=== PATIENT | male | born 1975 | race Caucasian/White ===

== ENCOUNTER 2020-03-01 11:59 | Observation (INO) ==
--- OUTSIDE RECORDS SUMMARY | 2020-03-01 12:02 | External Medical Summary | Continuity of Care Document ---
:1975 Author Name Matt M.Li, Provider Address Unavailable Unavailable , Care Team Providers Name Role Phone Unavailable Unavailable Unavailable CINTIA CUEVAS Unavailable Unavailable Problems Vision loss, left eye (369.8) (H54.62) Obesity (278.00) (E66.9) Edema (782.3) (R60.9) Impaired fasting glucose (790.21) (R73.01) Hypertension (401.9) (I10) Asthma (493.90) (J45.909) Allergic rhinitis (477.9) (J30.9) Gout (274.9) (M10.9) GERD without esophagitis (530.81) (K21.9) Allergies and Adverse Reactions Codeine Sulfate TABS (Allergy) Penicillins (Allergy) predniSONE TABS (Allergy) Medications metFORMIN HCl - 1000 MG Oral Tablet , M.D. Refills: 0 Singulair 10 MG Oral Tablet , M.D. Refills: 0 Claritin 10 MG Oral Tablet , M.D. Refills: 0 Zocor 40 MG Oral Tablet , M.D. Refills: 0 Ibuprofen 600 MG Oral Tablet , M.D. Refills: 0 Omeprazole 40 MG Oral Capsule Delayed Release , M.D. Refills: 0 glipiZIDE 10 MG Oral Tablet , M.D. Refills: 0 Allopurinol 300 MG Oral Tablet , M.D. Refills: 0 Synthroid 125 MCG Oral Tablet , M.D. Refills: 0 raNITIdine HCl 300 MG CAPS , M.D. Refills: 0 Procedures Procedures not documented Immunizations Immunizations not documented Plan of Treatment Planned Observations Planned Goals not documented Results No Known Results Results not documented
--- OUTSIDE RECORDS SUMMARY | 2020-03-01 12:02 | External Medical Summary | Continuity of Care Document ---
:1975 Author Name Matt M.Li, Provider Address Unavailable Unavailable , Care Team Providers Name Role Phone Unavailable Unavailable Unavailable CINTIA CUEVAS Unavailable Unavailable Problems GERD without esophagitis (530.81) (K21.9) Gout (274.9) (M10.9) Allergic rhinitis (477.9) (J30.9) Asthma (493.90) (J45.909) Hypertension (401.9) (I10) Impaired fasting glucose (790.21) (R73.01) Edema (782.3) (R60.9) Obesity (278.00) (E66.9) Vision loss, left eye (369.8) (H54.62) Allergies and Adverse Reactions Codeine Sulfate TABS [...]
[2020-03-01] MEDS ORDERED: CLINDAMYCIN 600 MG in DEXTROSE 5% 50 ML IV ONE (12:29)
[2020-03-01] MEDS ORDERED: SODIUM CHLORIDE 0.9% 1000ML 1,000 ML IV ONE (12:40)
--- NOTE | 2020-03-01 12:40 | Emergency Department Note ---
History of Present Illness General Chief complaint: Facial Injury/Pain Stated complaint: LUMP ON FACE, FEVER Time Seen by Provider: 03/01/20 12:21 Source: patient History of Present Illness Provider complaint: Facial pain Onset (ago): day(s) Location: face and left Radiation: neck Severity: mild Pain Consistency: + constant Maximum Pain Intensity: 2 Quality: + aching Exacerbated By: + other (When he touches it or bends over) Associated symptoms: + cough (Mild cough starting today) and + fever/chills (Tactile fever and chills); no chest pain, no nausea/vomiting and no shortness of breath This is a 44-year-old male who presents with left facial pain and swelling. The patient states that he had a pimple yesterday and then when he woke up this morning he noticed that it was very swollen and tender. He describes the pain as an aching and soreness. It is worse when he touches it or bends over. The pain does radiate into his left neck. He has had some associated tactile fevers and chills. He also noticed this morning that he woke up with a nonproductive cough. He denies any known exposure to COVID-19 and states that he stays home all day. He denies any chest pain, shortness of breath, abdominal pain, or vomiting. He did state that he felt his heart racing earlier. Home Medications Home Medications Medication Instructions Recorded Confirmed Type furosemide 20 mg PO QAM 03/01/20 03/01/20 History glipizide 10 mg PO BID 03/01/20 03/01/20 History ibuprofen 800 mg PO TIDM 03/01/20 03/01/20 History levothyroxine 137 mcg PO QAM 03/01/20 03/01/20 History lisinopril 10 mg PO QAM 03/01/20 03/01/20 History metformin 1,000 mg PO BID 03/01/20 03/01/20 History montelukast 10 mg PO QAM 03/01/20 03/01/20 History omeprazole 40 mg PO QAM 03/01/20 03/01/20 History simvastatin 40 mg PO QAM 03/01/20 03/01/20 History Allergies Allergy/AdvReac Type Severity Reaction Status Date / Time methylprednisolone Allergy Unknown chest Verified 03/01/20 14:53 pain,blurred vision,depression Penicillins Allergy Unknown RASH Unverified 03/01/20 14:53 lorazepam AdvReac Severe welts in Unverified 03/01/20 14:53 mouth ~ throat swells Past Med/Surg History Medical History Hypothyroidism Social History Smoking Status: Never smoker Do You Dip or Chew Tobacco: No; Hx Alcohol Use: Yes (Quit drinking 20 years ago) Hx Substance Use: No Preferred Language: Turkish Communication Ability: Effective Study Lead Required: No Beliefs That Will Affect Care: None Current Living Situation: Alone Other Information That Helps Us Care for You: No Feels Safe at Home: Yes Safety Concerns: Feels Safe At This Time Assistive Devices: Glasses Review of Systems See HPI for pertinent positives & negatives. and A total of 10 systems reviewed and were otherwise negative Physical Exam Vital Signs Vital Signs - 24 hr 03/01/20 12:14 03/01/20 14:02 03/01/20 14:30 Temperature 37.0 C Temperature Source Oral Pulse Rate 107 H 98 H 90 Pulse Rate from SpO2 Sensor 98 H 90 Respiratory Rate 20 25 H 21 Blood Pressure 169/79 H 146/85 H 150/83 H Blood Pressure Mean 109 93 107 Pulse Oximetry 97 96 97 Oxygen Delivery Method Room Air Sepsis Recent Fever Within 48 Hours No Sepsis New/Unexplained Change in Mental Status N/A Sepsis Action Taken by Nursing No Action Required 03/01/20 15:00 03/01/20 15:31 03/01/20 16:00 Temperature Temperature Source Pulse Rate 88 93 H 85 Pulse Rate from SpO2 Sensor 88 95 H 85 Respiratory Rate 20 20 22 Blood Pressure 142/84 H 162/90 H 143/78 H Blood Pressure Mean 103 107 89 Pulse Oximetry 97 97 97 Oxygen Delivery Method Sepsis Recent Fever Within 48 Hours Sepsis New/Unexplained Change in Mental Status Sepsis Action Taken by Nursing 03/01/20 16:30 Temperature Temperature Source Pulse Rate 86 Pulse Rate from SpO2 Sensor 85 Respiratory Rate 23 Blood Pressure 136/81 Blood Pressure Mean 100 Pulse Oximetry 96 Oxygen Delivery Method Sepsis Recent Fever Within 48 Hours Sepsis New/Unexplained Change in Mental Status Sepsis Action Taken by Nursing Constitutional: Vital signs reviewed. Eyes: Pupils are equal round reactive to light. Conjunctiva are noninjected. ENT: Pharynx is clear without erythema or exudate. Mucous membranes are dry. Swelling to the left side of his face in the preauricular region with fl uctuance. There is erythema over the area extending to the right side of his face. He is tender in the left submandibular region. No submental tenderness or firmness or elevation of the tongue. Respiratory: Clear to auscultation bilaterally. Breath sounds are equal bilaterally. Cardiovascular: Tachycardic. Regular rhythm. GI: Soft, nondistended and nontender. Bowel sounds are present. Musculoskeletal: No peripheral edema. No lower extremity tenderness. Integumentary: No cyanosis. or jaundice. Neurological: The patient is awake and alert. No focal deficits. Psychiatric: Normal affect. Not anxious appearing. Course Administered Medications Discontinued Medications Clindamycin Phosphate 600 mg/ (Dextrose) 54 mls @ 100 mls/hr IV ONE ONE Stop: 03/01/20 13:01 Last Infusion: 03/01/20 14:37 Dose: 0 mls/hr Documented by: [id number] Admin: 03/01/20 14:02 Dose: 100 mls/hr Documented by: [id number] Sodium Chloride (Nss 1000ml) 1,000 mls @ 999 mls/hr IV .Q1H1M ONE Stop: 03/01/20 13:40 Last Infusion: 03/01/20 15:29 Dose: 0 mls/hr Documented by: [id number] Admin: 03/01/20 14:02 Dose: 999 mls/hr Documented by: [id number] Ampicillin Sodium/Sulbactam Sodium 3,000 mg/ Sodium Chloride 108 mls @ 200 mls/hr IV NOW STA; Protocol Stop: 03/01/20 17:19 Last Infusion: 03/01/20 17:58 Dose: 0 mls/hr Documented by: [id number] Admin: 03/01/20 17:22 Dose: 200 mls/hr Documented by: [id number] Ioversol (Ioversol 100ml) 94 ml IV ONCE ONE Stop: 03/01/20 15:28 Last Admin: 03/01/20 15:28 Dose: 94 ml Documented by: [id number] Medical Decision Making Differential Diagnosis Facial abscess, facial cellulitis, sialoadenitis, sialolithiasis, MRSA, COVID-19 Medical Records Attestation: I reviewed the patient's medical records. I did perform a limited focused review of portions of the patient's old chart on the electronic medical record. The patient has had no recent pertinent visits to this hospital. Home Medications Current Medication List: was personally reviewed by me Laboratory Data Attestation: I reviewed the patient's lab results. Result diagrams: 03/01/20 13:55 03/01/20 13:55 Lab Results 03/01/20 03/01/20 03/01/20 Range/Units 13:55 13:55 13:55 WBC 10.01 (4.8-10.8) K/uL RBC 4.92 (4.7-6.1) M/uL Hgb 12.6 L (14.0-18.0) g/dL Hct 40.5 L (42-52) % MCV 82.3 (80-100) fL MCH 25.6 (25-34) pg MCHC 31.1 L (32-36) g/dL RDW Std Deviation 42.7 (36.4-46.3) fL RDW Coeff of Lia 14.4 (11.5-14.5) % Plt Count 208 (130-400) K/uL MPV 10.2 (7.4-10.4) fL Immature Gran % (Auto) 0.5 % Neut % (Auto) 70.9 % Lymph % (Auto) 19.9 % [place] % (Auto) 7.2 % Eos % (Auto) 1.3 % Baso % (Auto) 0.2 % Neut # (Auto) 7.10 H (1.4-6.5) K/uL Lymph # (Auto) 1.99 (1.2-3.4) K/uL [place] # (Auto) 0.72 H (0.11-0.59) K/uL Eos # (Auto) 0.13 (0-0.5) K/uL Baso # (Auto) 0.02 (0-0.2) K/uL Immature Gran # (Auto) 0.05 H (0.00-0.02) K/uL PT 11.5 (9.0-12.0) Seconds INR 1.1 (0.9-1.1) APTT 29.1 (21.0-31.0) Seconds PTT Ratio 1.0 Sodium 135 L (136-145) mmol/L Potassium 3.7 (3.5-5.1) mmol/L Chloride 102 (98-107) mmol/L Carbon Dioxide 28 (21-32) mmol/L Anion Gap 5.0 (3-11) BUN 10 (7-18) mg/dl Creatinine 1.22 (0.6-1.4) mg/dl Est Cr Clr Drug Dosing 122.6 ml/min Est GFR ( Amer) 84.2 Est GFR (Non-Af Amer) 72.7 BUN/Creatinine Ratio 8.4 L (10-20) Glucose 223 H (70-99) mg/dl Calcium 9.0 (8.5-10.1) mg/dl Total Bilirubin 0.7 (0.2-1) mg/dl AST 33 (15-37) U/L ALT 64 (12-78) U/L Alkaline Phosphatase 109 (45-117) U/L Total Protein 8.6 H (6.4-8.2) gm/dl Albumin 3.6 (3.4-5.0) gm/dl Globulin 5.0 H (2.5-4.0) gm/dl Albumin/Globulin Ratio 0.7 L (0.9-2) Nasal Screen MRSA (PCR) (Negative) COVID-19 Eval Order SARS-CoV-2, RNA, NAAT (NEGATIVE) 03/01/20 03/01/20 03/01/20 Range/Units 14:00 14:00 14:00 WBC (4.8-10.8) K/uL RBC (4.7-6.1) M/uL Hgb (14.0-18.0) g/dL Hct (42-52) % MCV (80-100) fL MCH (25-34) pg MCHC (32-36) g/dL RDW Std Deviation (36.4-46.3) fL RDW Coeff of Lia (11.5-14.5) % Plt Count (130-400) K/uL MPV (7.4-10.4) fL Immature Gran % (Auto) % Neut % (Auto) % Lymph % (Auto) % [place] % (Auto) % Eos % (Auto) % Baso % (Auto) % Neut # (Auto) (1.4-6.5) K/uL Lymph # (Auto) (1.2-3.4) K/uL [place] # (Auto) (0.11-0.59) K/uL Eos # (Auto) (0-0.5) K/uL Baso # (Auto) (0-0.2) K/uL Immature Gran # (Auto) (0.00-0.02) K/uL PT (9.0-12.0) Seconds INR (0.9-1.1) APTT (21.0-31.0) Seconds PTT Ratio Sodium (136-145) mmol/L Potassium (3.5-5.1) mmol/L Chloride (98-107) mmol/L Carbon Dioxide (21-32) mmol/L Anion Gap (3-11) BUN (7-18) mg/dl Creatinine (0.6-1.4) mg/dl Est Cr Clr Drug Dosing ml/min Est GFR ( Amer) Est GFR (Non-Af Amer) BUN/Creatinine Ratio (10-20) Glucose (70-99) mg/dl Calcium (8.5-10.1) mg/dl Total Bilirubin (0.2-1) mg/dl AST (15-37) U/L ALT (12-78) U/L Alkaline Phosphatase (45-117) U/L Total Protein (6.4-8.2) gm/dl Albumin (3.4-5.0) gm/dl Globulin (2.5-4.0) gm/dl Albumin/Globulin Ratio (0.9-2) Nasal Screen MRSA (PCR) Negative (Negative) COVID-19 Eval Order Covid19 [facility] SARS-CoV-2, RNA, NAAT NEGATIVE (NEGATIVE) Imaging Data Radiologist's Impression: CT soft tissue neck w con HISTORY: left facial swelling eval for abscess/sialoadeniti TECHNIQUE: Multiaxial CT images of the neck were performed following the use of intravenous contrast. COMPARISON STUDY: None. FINDINGS: The visualized brain parenchyma and orbits are within normal limits. No suspicious lytic or blastic osseous lesions. The lung apices are clear. There is 9 mm left thyroid nodule. This does not meet CT criteria for further follow- up. The major cervical vessels appear patent. The parotid and submandibular glands appear symmetric. There is a skin marker along the left cheek with underlying skin thickening and subcutaneous fat stranding. No fluid collections to suggest an abscess. There is also mild subcutaneous fat stranding seen within the left anterolateral neck with mild thickening of the platysma. Findings favor a cellulitis. No radiopaque foreign bodies identified. Prevertebral soft tissues and the epiglottis are normal in thickness. The major mucosal airways services are intact. A few borderline-enlarged left periarticular and left parotid lymph nodes are noted. These may be reactive to the suspected cellulitis. IMPRESSION: 1. Left facial/neck cellulitis. No abscess identified. 2. A few enlarged left preauricular and left parotid lymph nodes. These may be reactive. ACT 112: Negative or not required by law. Electronically signed by: Jalen Anand M.D. 03/01/2020 3:51 PM XR chest 1V portable HISTORY: cough eval for pna COMPARISON: Chest 11/16/2013. FINDINGS: The lungs are clear. Cardiac silhouette is normal in size. No pleural effusions. No pneumothorax. IMPRESSION: No acute process. ACT 112: Negative or not required by law. Electronically signed by: Jalen Anand M.D. 03/01/2020 1:26 PM MDM Narrative I did evaluate the patient as noted above. The patient is presenting with an obvious infection to the left side of his face. He appears to have a cellulitis and abscess to his face. He did start having a cough today but denies any known exposure to COVID-19. Out of caution he was placed in respiratory isolation and a rapid Covid test was obtained. This came back negative. IV access was established. I did place an order for continuous cardiac monitoring. The monitor showed sinus tachycardia at a rate of 102 bpm. I did order blood cultures. I did treat him with clindamycin IV. He was also given a liter normal saline IV. He was made NPO. I did order an MRSA swab as well. This came back negative. I did order and personally reviewed the images of the patient's chest x-ray as described above. There is no evidence of pneumonia. I did order and review the patient's blood work as noted in the electronic medical record. He has mild anemia and mild hyponatremia. His white count is not elevated. Electrolytes are otherwise unremarkable. He does have hyperglycemia. I did order a CT of the soft tissue neck. I did review the images myself as well as the radiology report as described above. There is no evidence of abscess. He does have left facial and neck cellulitis. I did discuss the test results with the patient. I did recommend hospitalization for IV antibiotics. I did discuss case with the hospitalist and major case detective. Impression & Plan Facial cellulitis, Cellulitis of neck, Acute hyperglycemia Discharge Plan Visit Data Chief Complaint: Facial Injury/Pain Stated Complaint: LUMP ON FACE, FEVER ED Provider: Reynaldo Acosta Discharge Problem: Facial cellulitis, Cellulitis of neck, Acute hyperglycemia Patient Disposition: Admitted As Inpatient Discharge Instructions Interventions: ED Discharge Assessment Last Done: 03/01/20 18:13
--- NOTE | 2020-03-01 13:28 | XRay Report ---
XR chest 1V portable HISTORY: cough eval for pna COMPARISON: Chest 11/16/2013. FINDINGS: The lungs are clear. Cardiac silhouette is normal in size. No pleural effusions. No pneumot horax. IMPRESSION: No acute process. ACT 112: Negative or not required by law. Electronically signed by: Jalen Anand M.D. 03/01/2020 1:26 PM
[2020-03-01 14:30] LABS: Basophils # (auto) 0.02 K/uL (0-0.2); Basophils % (auto) 0.2 %; Eosinophils # (auto) 0.13 K/uL (0-0.5); Eosinophils % (auto) 1.3 %; Hematocrit (blood only) 40.5 % (42-52); Hemoglobin 12.6 g/dL (14.0-18.0); Immature Granulocytes # (auto) 0.05 K/uL (0.00-0.02); Immature Granulocytes % (auto) 0.5 %; Lymphocytes # (auto) 1.99 K/uL (1.2-3.4); Lymphocytes % (auto) 19.9 %; Mean Corpuscular Hemoglobin 25.6 pg (25-34); Mean Corpuscular Hgb Conc 31.1 g/dL (32-36); Mean Corpuscular Volume 82.3 fL (80-100); Mean Platelet Volume 10.2 fL (7.4-10.4); Monocytes # (auto) 0.72 K/uL (0.11-0.59); Monocytes % (auto) 7.2 %; Neutrophils % (auto) 70.9 %; Platelet Count 208 K/uL (130-400); RDW Coefficient of Variation 14.4 % (11.5-14.5); RDW Standard Deviation 42.7 fL (36.4-46.3); Red Blood Count 4.92 M/uL (4.7-6.1); White Blood Count 10.01 K/uL (4.8-10.8)
[2020-03-01 14:34] LABS: INR 1.1 (0.9-1.1); Partial Thromboplastin Time 29.1 Seconds (21.0-31.0); Prothrombin Time 11.5 Seconds (9.0-12.0)
[2020-03-01 14:39] LABS: Albumin Level 3.6 gm/dl (3.4-5.0); BUN Creatinine Ratio 8.4 (10-20); Creatinine Clr Calc Pharmacy 122.6 ml/min; Est GFR (African American) 84.2; Est GFR (Non-African American) 72.7; Potassium 3.7 mmol/L (3.5-5.1)
[2020-03-01 14:41] LABS: Albumin Globulin Ratio 0.7 (0.9-2); Bilirubin,Total 0.7 mg/dl (0.2-1); Total Protein 8.6 gm/dl (6.4-8.2)
[2020-03-01] MEDS ORDERED: IOVERSOL 100ml IV ONE (15:27)
--- NOTE | 2020-03-01 15:53 | CT Scan Report ---
CT soft tissue neck w con HISTORY: left facial swelling eval for abscess/sialoadeniti TECHNIQUE: Multiaxial CT images of the neck were performed following the use of intravenous contrast. COMPARISON STUDY: None. FINDINGS: The visualized brain parenchyma and orbits are within normal limits. No suspicious lytic or blastic osseous lesions. The lung apices are clear. There is 9 mm left thyroid nodule. This does not meet CT criteria for further follow-up. The major cervical vessels appear patent. The parotid and marino bmandibular glands appear symmetric. There is a skin marker along the left cheek with underlying skin thickening and subcutaneous fat stranding. No fluid collections to suggest an abscess. There is also mild subcutaneous fat stranding seen within the left anterolateral neck with mild thickening of the platysma. Findings favor a cellulitis. No radiopaque foreign bodies identified. Prevertebral soft tis sues and the epiglottis are normal in thickness. The major mucosal airways services are intact. A few borderline-enlarged left periarticular and left parotid lymph nodes are noted. These may be reactive to the suspected cellulitis. IMPRESSION: 1. Left facial/neck cellulitis. No abscess identified. 2. A few enlarged left preauricular and left parotid lymph nodes. These may be reactive. ACT 112: Negative or not required by law. Electronically signed by: Jalen Anand M.D. 03/01/2020 3:51 PM
--- NOTE | 2020-03-01 16:38 | History & Physical Report ---
Date of Service March 01, 2020 Assessment & Plan (1) Facial cellulitis: Started from a pimple. No drainable abscess. Unasyn 3000mg IV Q6H - questionable penicillin allergy. Tolerated amoxicillin previously per patient recollection. Will give first dose in ER to make sure to adverse reaction. Follow-up blood cultures (2) Type 2 diabetes mellitus: HbA1C with AM labs. Hold home meds glipizide and metformin. Start Lantus 15 units BID (based on weight) Novolog sliding scale, aim 110-140, correction 30, carb coverage 1:10 (3) Hypothyroidism: Continue levothyroxine 1 3 7 mcg p.o. every morning (4) HTN (hypertension): Continue lisinopril 10 mg p.o. every morning (5) GERD (gastroesophageal reflux disease): Switch omeprazole for pantoprazole as per hospital formulary (6) DVT prophylaxis: Low risk. Chemical or mechanical prophylaxis not warranted. Admission and Anticipated Discharge Date Admission Date: 03/01/2020 History of Present Illness Chief Complaint: Erythema and swelling left face Primary Care Provider: Demetrio Stock Haris Scanlon is a 44 year old male who presents to the ER with left facial pain, erythema and swelling. 2 days ago he noticed having a pimple which he popped. He woke up with facial pain over this area and it became more erythematous and swollen throughout the day as he was playing video games. Severity 8/10 at worst. Worse on palpation or when he leans over. No associated tooth pain. He does note worsening of the pain when opening his jaw wide. He denies any fevers or chills. He denies any hearing changes or ear pain. No loss of taste or smell, shortness of breath, cough, diarrhea, abdominal pain, known exposure to COVID-19. He denies any prior history of MRSA infections. In the ER CT was concerning for left facial and neck cellulitis however without a drainable abscess. WBC WNL. In the ER he was given clindamycin due to a questionable penicillin allergy. He reports getting a rash when he was 7 years old to penicillin. However he reports taking amoxicillin since then without problems. Confirmed on external pharmacy med rec he took Keflex last year without any issues. He was referred to medicine for facial and neck cellulitis. Allergies Allergy/AdvReac Type Severity Reaction Status Date / Time methylprednisolone Allergy Unknown chest Verified 03/01/20 14:53 pain,blurred vision,depression lorazepam AdvReac Severe welts in Unverified 03/01/20 14:53 mouth ~ throat swells Home Medications Home Medications Medication Instructions Recorded Confirmed Type furosemide 20 mg PO QAM 03/01/20 03/01/20 History glipizide 10 mg PO BID 03/01/20 03/01/20 History ibuprofen 800 mg PO TIDM 03/01/20 03/01/20 History levothyroxine 137 mcg PO QAM 03/01/20 03/01/20 History lisinopril 10 mg PO QAM 03/01/20 03/01/20 History metformin 1,000 mg PO BID 03/01/20 03/01/20 History montelukast 10 mg PO QAM 03/01/20 03/01/20 History omeprazole 40 mg PO QAM 03/01/20 03/01/20 History simvastatin 40 mg PO QAM 03/01/20 03/01/20 History Past Med/Surg History Medical History (Updated 03/02/20 @ 06:54 by Alton Johnson MD) GERD (gastroesophageal reflux disease) HTN (hypertension) Hypothyroidism Type 2 diabetes mellitus Social History Smoking Status: Never smoker Do You Dip or Chew Tobacco: No; Hx Alcohol Use: Yes (Quit drinking 20 years ago) Hx Substance Use: No Preferred Language: Kinyarwanda Communication Ability: Effective Client Executive Required: No Beliefs That Will Affect Care: None Current Living Situation: Alone Other Information That Helps Us Care for You: No Feels Safe at Home: Yes Safety Concerns: Feels Safe At This Time Assistive Devices: Glasses Review of Systems Review of Systems: All systems reviewed & are unremarkable except as noted in HPI & below Physical Exam Constitutional: well developed and + morbidly obese; + not well nourished Eyes: + anicteric sclerae; normal pupil size Neck: trachea midline Respiratory: normal respiratory effort, lungs clear to auscultation Cardiovascular: RRR, no murmur, no edema Gastrointestinal (Abdomen): normal bowel sounds, soft, nontender, no hepatosplenomegaly Musculoskeletal: no cyanosis or clubbing, extremities motor strength 5/5 Skin: Erythema and swelling surrounding central crusting open 5mm circular w ound 2cm anterior to left pinna. Erythema extending around ear and extends to neck just below jaw line. Neurologic: moves all extremities, awake and + confused Psychiatric: A+Ox3, euthymic affect Lymphatic: + cervical lymphadenopathy (Anterior left) Results & Data Results & Data ([facility]) Vital Signs (Past 12 Hours) Vital Signs Temp Pulse Resp BP Pulse Ox 03/01/20 15:00 88 20 142/84 H 97 03/01/20 14:30 90 21 150/83 H 97 03/01/20 14:02 98 H 25 H 146/85 H 96 03/01/20 12:14 37.0 C 107 H 20 169/79 H 97 Code Status & VTE Plan Code Status Full VTE Prophylaxis Plan VTE Prophylaxis will be ordered: No PG Care Time/CCT Total # of Minutes Spent Total Time Spent with Patient: Total time spent is greater than 50% in coordination of care (as documented) at patient's floor/unit and/or counseling patient: Coding Level of Care Code 61973 OBS Care - Level 3 Diagnoses Facial cellulitis L03.211 Type 2 diabetes mellitus E11.9 Hypothyroidism E03.9 HTN (hypertension) I10 GERD (gastroesophageal reflux disease) K21.9 DVT prophylaxis Z29.9
[2020-03-01] MEDS ORDERED: AMPICILLIN/SULBACTAM SOD 3,000 MG in 0.9 % SODIUM CHLORIDE 100 ML IV STA (16:47)
[2020-03-01] MEDS ORDERED: GLUCOSE 10 TABS/TUBE PO PRN (18:34)
[2020-03-01] MEDS ORDERED: GLUCAGON FOR INJ 1 MG VIAL SQ PRN (18:34)
[2020-03-01] MEDS ORDERED: ONDANSETRON INJ 2 MG/ML 2 ML VIAL IV PRN (18:34)
[2020-03-01] MEDS ORDERED: CARBOHYDRATES FOR HYPOGLYCEMIA PO PRN (18:34)
[2020-03-01] MEDS ORDERED: ACETAMINOPHEN 325 MG TAB PO PRN (18:34)
[2020-03-01] MEDS ORDERED: DEXTROSE 50% 50 ML SYRINGE IV PRN (18:34)
[2020-03-01] MEDS ORDERED: GLUCOSE 40% GEL 15 GM TUBE PO PRN (18:34)
[2020-03-01] MEDS: INSULIN GLARGINE SOLOSTAR 100 UNITS/ML 3 ML PEN SC SCH (20:59)
[2020-03-01] MEDS: INSULIN ASPART 100 UNITS/ML 3 ML PEN SC SCH (20:59)
[2020-03-02] MEDS: AMPICILLIN/SULBACTAM SOD 3,000 MG in 0.9 % SODIUM CHLORIDE 100 ML IV SCH ×4 (00:11→18:00)
[2020-03-02] MEDS ORDERED: KETOROLAC TROMETHAMINE 15 MG/ML VIAL IV PRN (00:22)
[2020-03-02] MEDS: LEVOTHYROXINE SODIUM 137 MCG TABLET PO SCH (05:22)
[2020-03-02] MEDS: ACETAMINOPHEN 500 MG TAB PO PRN ×2 (05:22→11:59)
[2020-03-02 06:26] LABS: Basophils # (auto) 0.02 K/uL (0-0.2); Basophils % (auto) 0.2 %; Eosinophils # (auto) 0.14 K/uL (0-0.5); Eosinophils % (auto) 1.3 %; Hematocrit (blood only) 37.9 % (42-52); Hemoglobin 11.7 g/dL (14.0-18.0); Immature Granulocytes # (auto) 0.03 K/uL (0.00-0.02); Immature Granulocytes % (auto) 0.3 %; Lymphocytes # (auto) 1.99 K/uL (1.2-3.4); Lymphocytes % (auto) 18.8 %; Mean Corpuscular Hemoglobin 25.8 pg (25-34); Mean Corpuscular Hgb Conc 30.9 g/dL (32-36); Mean Corpuscular Volume 83.5 fL (80-100); Monocytes # (auto) 1.02 K/uL (0.11-0.59); Monocytes % (auto) 9.6 %; Neutrophils # (auto) 7.39 K/uL (1.4-6.5); Neutrophils % (auto) 69.8 %; Platelet Count 193 K/uL (130-400); RDW Coefficient of Variation 14.4 % (11.5-14.5); RDW Standard Deviation 44.2 fL (36.4-46.3); Red Blood Count 4.54 M/uL (4.7-6.1); White Blood Count 10.59 K/uL (4.8-10.8)
[2020-03-02] MEDS ORDERED: VANCOMYCIN CONSULT ACTIVE PRN (06:29)
--- NOTE | 2020-03-02 06:32 | Communication Note ---
Date of Service: March 02, 2020 Notified that pt had gram positive cocci in clusters growing in one bottle. A loading dose of Vancomycin was ordered. Resident Activity Tracking Resident Involvement: Brinell Tester Coverage Note Care Provided: Adult Hospital Medicine
[2020-03-02] MEDS ORDERED: VANCOMYCIN HCL 2,750 MG in SODIUM CHLORIDE 0.9% 500 ML IV STA (06:35)
[2020-03-02 06:54] LABS: BUN Creatinine Ratio 8.9 (10-20); Calcium 8.7 mg/dl (8.5-10.1); Creatinine Clr Calc Pharmacy 137.2 ml/min; Est GFR (African American) 96.5; Est GFR (Non-African American) 83.3; Potassium 3.7 mmol/L (3.5-5.1)
[2020-03-02] MEDS: MONTELUKAST SODIUM 10 MG TABLET PO SCH (08:26)
[2020-03-02] MEDS: FUROSEMIDE 20 MG TAB PO SCH (08:27)
[2020-03-02] MEDS: PANTOprazole 40 MG TAB PO SCH (08:27)
[2020-03-02] MEDS: lisinopril 10 MG TAB PO SCH (08:27)
[2020-03-02] MEDS: INSULIN GLARGINE SOLOSTAR 100 UNITS/ML 3 ML PEN SC SCH ×2 (08:30→21:39)
[2020-03-02] MEDS: INSULIN ASPART 100 UNITS/ML 3 ML PEN SC SCH ×4 (08:31→21:38)
[2020-03-02] MEDS ORDERED: SIMVASTATIN 40 MG TAB PO SCH (09:00)
--- NOTE | 2020-03-02 12:32 | Hospitalist Progress Note ---
Date of Service March 02, 2020 Assessment & Plan (1) Facial cellulitis: Started from a pimple. No drainable abscess on CT Will dc Unasyn as patient is growing gram pos cocci in clusters in his blood culture x 1 vial - change vancomycin to daptomycin due to patient's BMI (2) Gram-positive bacteremia: As above, follow culture for further identification (3) Type 2 diabetes mellitus: HbA1C with AM labs. Hold home meds glipizide and metformin. Pharmacy glycemic management (4) Hypothyroidism: Continue levothyroxine 137 mcg p.o. every morning (5) HTN (hypertension): Continue lisinopril 10 mg p.o. every morning (6) GERD (gastroesophageal reflux disease): Switch omeprazole for pantoprazole as per hospital formulary (7) Hyperlipemia: Hold statin while taking daptomcyin (8) DVT prophylaxis: Low risk. Chemical or mechanical prophylaxis not warranted. Admission and Anticipated Discharge Date Admission Date: March 01, 2020 Subjective Mr Scanlon has swelling in his left face with some drainage but otherwise is feeling ok, pain is tolerable. This afternoon he was very frustrated by his continued stay in the hospital. Spent time bedside to discuss risks of leaving the hospital and that I cannot discharge him at this point. He did decide to stay tonight. ROS Constitutional: no chills, aches, sweats or fever Respiratory: no sob,cough, sputum, or wheezing Cardiac: no chest pain, palpitations, edema, orthopnea or lightheadedness GI: no abdominal pain, nausea, vomiting, diarrhea or constipation : no dysuria or hesitancy Extremities: no joint pain or weakness Skin: no rash All other systems reviewed and negative Physical Exam Physical Exam: General: no distress Eyes: normal inspection, PERLL Respiratory: chest non tender, clear to auscultation, normal breath sounds, no respiratory distress, no accessory muscle use Cardiac: regular rate and rhythm, no rub or gallop, no murmur, no edema, no jvd GI/: active bowel sounds, no abd pain or tenderness, soft, non distended Extremities: normal range of motion, normal strength, non tender Neuro/Psych: alert and oriented x 3, normal mood and affect Skin: normal color, dry, left facial edema with pustule that is draining Results & Data Results & Data ([facility]) Vital Signs (Past 12 Hours) Vital Signs Temp Pulse Resp BP Pulse Ox 03/02/20 07:34 37.0 C 90 16 135/82 95 PG Care Time/CCT Total # of Minutes Spent Total Time Spent with Patient: Total time spent is greater than 50% in coordination of care (as documented) at patient's floor/unit and/or counseling patient: Coding Level of Care Code 53763 Subseq Hosp Care Lvl 3 Diagnoses Facial cellulitis L03.211 Gram-positive bacteremia R78.81 Type 2 diabetes mellitus E11.9 Hypothyroidism E03.9 HTN (hypertension) I10 GERD (gastroesophageal reflux disease) K21.9 Hyperlipemia E78.5 DVT prophylaxis Z29.9
[2020-03-02] MEDS ORDERED: PHARMACY GLYCEMIC MGMT CONSULT PRN (13:12)
--- NOTE | 2020-03-02 13:26 | Pharmacy Report ---
Pharmacy Glycemic Short Note 2 - Date of Service March 02, 2020 - Glycemic Short BSG Results (Last 24 hours): 03/01/20 03/01/20 03/01/20 13:55 18:38 20:48 Glucose 223 H POC Glucose 163 H 241 H 03/02/20 03/02/20 03/02/20 05:18 08:07 11:47 Glucose 190 H POC Glucose 243 H 209 H OUTPATIENT ANTIDIABETIC REGIMEN: * glipizide 10 mg BID * metformin 1000 mg BID * A1c pending ASSESSMENT: * Haris is a 44 yo T2DM admitted with facial cellulitis and possible bacteremia (GPC in 1 BC) * Pt is maintained on oral antidiabetic agents as an outpatient * Will hold oral agents for admission and utilize SQ basal bolus insulin regimen which is the recommended regimen for inpatient glycemic control. * Fasting BSG of 243 mg/dL after a single dose of Lantus 15 units. Will change to Lantus dose per scale for easier dose titration. * Tighten Novolog parameters by ~20% PLAN FOR INPATIENT GLYCEMIC CONTROL: * Hold outpatient oral diabetes medications * Basal insulin * Lantus 15 units SQ qAM, then per scale BID: * 10 units for BSG < 140 * 15 units for BSG 140-200 * 19 units for BSG > 200 * Bolus insulin * NovoLog per scale ACHS or Q6hrs while NPO * Goal Range: Low 110 mg/dL - High 140 mg/dL * Correction Factor: 25 mg/dL/unit * Nutritional / Prandial insulin per carb ratio of 1 unit per 8 grams CHO consumed PLAN FOR DISCHARGE: * tbd
[2020-03-02] MEDS: DAPTOmycin 650 MG in SYRINGE 0 ML IV SCH (13:33)
[2020-03-02] MEDS ORDERED: LIDO/EPINEPHRINE/SOD BICARB 20 ML VIAL INFIL ONE (15:00)
--- NOTE | 2020-03-02 15:45 | Surgery Consultation ---
Date of Consultation March 02, 2020 Assessment & Plan (1) Facial cellulitis: Clinically, this is most consistent with suspected MRSA infection. As there was some drainage noted at the site, I did obtain verbal consent from the patient to proceed with incision and drainage to see if we could facilitate drainage and antibiotic penetration. Procedure note: Skin was prepped with Betadine. 1% lidocaine with epinephrine (2 cc) was infiltrated into the area. An 11 blade scalpel was used to make an approximately 1 cm incision along lines of relaxed skin tension. An iris scissor was used to spread into the tissues, and there was return of about 2 cc of purulent drainage. Wound culture was obtained. Bleeding was minimal. Gauze dressing was tucked into the wound and 4 x 4 was used to cover the area, followed by silk tape. Recommended warm compresses to the area, continued IV antibiotics. I will reevaluate the patient tomorrow afternoon. Patient was advised it may take several weeks for all of the induration to resolve. History of Present Illness Attending Physician: Enrico Jacobs DO History of Present Illness Patient is a 44-year-old male admitted overnight for left facial cellulitis. He reports on Tuesday, he developed a pimple on his left face, which he did manipulate, resulting in significant swelling, fever, and facial pain yesterday. He presented to the emergency department, where he underwent CT scan, showing no drainable abscess. He is still experiencing significant pain today. I am asked to evaluate him for possible incision and drainage. He does have 1+ blood culture thus far for gram-positive cocci in clusters. Was being treated with vancomycin, this has now been changed to daptomycin. Allergies Allergy/AdvReac Type Severity Reaction Status Date / Time methylprednisolone Allergy Unknown chest Verified 03/01/20 14:53 pain,blurred vision,depression lorazepam AdvReac Severe welts in Unverified 03/01/20 14:53 mouth ~ throat swells Home Medications Home Medications Medication Instructions Recorded Confirmed Type furosemide 20 mg PO QAM 03/01/20 03/01/20 History glipizide 10 mg PO BID 03/01/20 03/01/20 History ibuprofen 800 mg PO TIDM 03/01/20 03/01/20 History levothyroxine 137 mcg PO QAM 03/01/20 03/01/20 History lisinopril 10 mg PO QAM 03/01/20 03/01/20 History metformin 1,000 mg PO BID 03/01/20 03/01/20 History montelukast 10 mg PO QAM 03/01/20 03/01/20 History omeprazole 40 mg PO QAM 03/01/20 03/01/20 History simvastatin 40 mg PO QAM 03/01/20 03/01/20 History Patient History Medical History (Updated 03/02/20 @ 12:50 by EMILY Blanton) GERD (gastroesophageal reflux disease) HTN (hypertension) Hypothyroidism Type 2 diabetes mellitus Social History Smoking Status: Never smoker Do You Dip or Chew Tobacco: No; Hx Alcohol Use: Yes (Quit drinking 20 years ago) Hx Substance Use: No Preferred Language: Mongolian Communication Ability: Effective Canvas Cutter Required: No Beliefs That Will Affect Care: None Current Living Situation: Alone Other Information That Helps Us Care for You: No Feels Safe at Home: Yes Safety Concerns: Feels Safe At This Time Assistive Devices: Glasses Review of Systems Constitutional: + fever Integumentary: as per Subjective / HPI Physical Exam Constitutional: WD/WN, vitals as above Skin: no rashes, warm and dry + wound There is an area of induration left preauricular area measuring about 6 x 8 cm, centrally, there is some scant purulent drainage. It is tender to palpation. Psychiatric: A+Ox3, euthymic affect Results & Data ([facility]) Vital Signs (Past 12 Hours) Vital Signs Temp Pulse Resp BP Pulse Ox 03/02/20 07:34 98.6 F 90 16 135/82 95 Laboratory Results White blood cell count 10.5, blood cultures, 1+ for gram-positive cocci in clusters Diagnostic Findings CT scan of the face and neck shows:FINDINGS: The visualized brain parenchyma and orbits are within normal limits. No suspicious lytic or blastic osseous lesions. The lung apices are clear. There is 9 mm left thyroid nodule. This does not meet CT criteria for further follow-up. The major cervical vessels appear patent. The parotid and submandibular glands appear symmetric. There is a skin marker along the left cheek with underlying skin thickening and subcutaneous fat stranding. No fluid collections to suggest an abscess. There is also mild subcutaneous fat stranding seen within the left anterolateral neck with mild thickening of the platysma. Findings favor a cellulitis. No radiopaque foreign bodies identified. Prevertebral soft tissues and the epiglottis are normal in thickness. The major mucosal airways services are intact. A few borderline-enlarged left periarticular and left parotid lymph nodes are noted. These may be reactive to the suspected cellulitis. IMPRESSION: 1. Left facial/neck cellulitis. No abscess identified. 2. A few enlarged left preauricular and left parotid lymph nodes. These may be reactive. PG Care Time/CCT Total # of Minutes Spent Total Time Spent with Patient: Total time spent is greater than 50% in coordination of care (as documented) at patient's floor/unit and/or counseling patient: Coding Level of Care Code 37610 Inpt Consult Level 2 (25 - SIGNIFICANT, SEPARATELY IDENTIFIABLE ) Diagnoses Facial cellulitis L03.211 CPT Codes Drainage of Skin Abscess - 92283 ([id number])
[2020-03-03] MEDS: ACETAMINOPHEN 500 MG TAB PO PRN (01:36)
[2020-03-03] MEDS: LEVOTHYROXINE SODIUM 137 MCG TABLET PO SCH (05:50)
[2020-03-03 06:10] LABS: Estimated Average Glucose 157 mg/dl; Hemoglobin A1C 7.1 % (4.5-5.6)
[2020-03-03 07:04] LABS: Hematocrit (blood only) 36.9 % (42-52); Hemoglobin 11.1 g/dL (14.0-18.0); Mean Corpuscular Hemoglobin 25.2 pg (25-34); Mean Corpuscular Hgb Conc 30.1 g/dL (32-36); Mean Corpuscular Volume 83.7 fL (80-100); Mean Platelet Volume 9.6 fL (7.4-10.4); Platelet Count 188 K/uL (130-400); RDW Coefficient of Variation 14.5 % (11.5-14.5); Red Blood Count 4.41 M/uL (4.7-6.1); White Blood Count 9.22 K/uL (4.8-10.8)
[2020-03-03 07:41] LABS: BUN Creatinine Ratio 8.3 (10-20); Calcium 8.7 mg/dl (8.5-10.1); Creatinine Clr Calc Pharmacy 127.9 ml/min; Est GFR (African American) 88.6; Est GFR (Non-African American) 76.4; Potassium 3.5 mmol/L (3.5-5.1)
[2020-03-03] MEDS: PANTOprazole 40 MG TAB PO SCH (08:34)
[2020-03-03] MEDS: FUROSEMIDE 20 MG TAB PO SCH (08:34)
[2020-03-03] MEDS: lisinopril 10 MG TAB PO SCH (08:34)
[2020-03-03] MEDS: MONTELUKAST SODIUM 10 MG TABLET PO SCH (08:34)
[2020-03-03] MEDS: INSULIN GLARGINE SOLOSTAR 100 UNITS/ML 3 ML PEN SC SCH (08:36)
[2020-03-03] MEDS: INSULIN ASPART 100 UNITS/ML 3 ML PEN SC SCH ×2 (08:38→12:52)
--- NOTE | 2020-03-03 08:50 | Pharmacy Report ---
Pharmacy Glycemic Short Note 2 - Date of Service March 03, 2020 - Glycemic Short BSG Results (Last 24 hours): 03/02/20 03/02/20 03/02/20 11:47 17:04 20:32 Glucose POC Glucose 209 H 167 H 160 H 03/03/20 03/03/20 06:40 08:07 Glucose 229 H POC Glucose 217 H OUTPATIENT ANTIDIABETIC REGIMEN: * glipizide 10 mg BID * metformin 1000 mg BID * A1c 7.1% 03/02/20 ASSESSMENT: 03/04 * 49 units SQ insulin administered over last 24 hrs. Patient did consume 2 of 3 meals yesterday. * Fasting BSG elevated this AM. FBS 217 with 30 units Lantus on board - will increase doses per scale * Post-prandial BSG controlled using current Novolog CR/CF yesterday, but this was only used once - will continue the same doses at this time and monitor post-prandial trends PLAN FOR INPATIENT GLYCEMIC CONTROL: * Hold outpatient oral diabetes medications * Basal insulin - increase dose * Lantus 15 units SQ qAM, then per scale BID: * 10 units for BSG < 120 * 20 units for BSG 120-200 * 15 units for BSG > 200 * Bolus insulin - no change * NovoLog per scale ACHS or Q6hrs while NPO * Goal Range: Low 110 mg/dL - High 140 mg/dL * Correction Factor: 25 mg/dL/unit * Nutritional / Prandial insulin per carb ratio of 1 unit per 8 grams CHO consumed PLAN FOR DISCHARGE: * Given A1c of 7.1%, patient may resume home doses of glipizide and metformin on discharge if no contraindications present.
--- NOTE | 2020-03-03 11:19 | Hospitalist Progress Note ---
Date of Service March 03, 2020 Assessment & Plan Admission and Anticipated Discharge Date Admission Date: March 01, 2020 Results & Data Results & Data ([facility]) Vital Signs (Past 12 Hours) Vital Signs Temp Pulse Resp BP BP Pulse Ox 03/03/20 07:38 36.6 C 91 H 18 142/88 H 98 03/02/20 23:22 37.0 C 95 H 16 144/87 H 94 PG Care Time/CCT Total # of Minutes Spent Total Time Spent with Patient: Total time spent is greater than 50% in coordination of care (as documented) at patient's floor/unit and/or counseling patient: Coding
--- NOTE | 2020-03-03 12:16 | Discharge Summary ---
Date of Service March 03, 2020 Admission HPI Per Admitting Provider Haris Scanlon is a 44 year old male who presents to the ER with left facial pain, erythema and swelling. 2 days ago he noticed having a pimple which he popped. He woke up with facial pain over this area and it became more erythematous and swollen throughout the day as he was playing video games. Severity 8/10 at worst. Worse on palpation or when he leans over. No associated tooth pain. He does note worsening of the pain when opening his jaw wide. He denies any fevers or chills. He denies any hearing changes or ear pain. No loss of taste or smell, shortness of breath, cough, diarrhea, abdominal pain, known exposure to COVID-19. He denies any prior history of MRSA infections. In the ER CT was concerning for left facial and neck cellulitis however without a drainable abscess. WBC WNL. In the ER he was given clindamycin due to a questionable penicillin allergy. He reports getting a rash when he was 7 years old to penicillin. However he reports taking amoxicillin since then without problems. Confirmed on external pharmacy med rec he took Keflex last year without any issues. He was referred to medicine for facial and neck cellulitis. Admission Exam Per Admitting Provider Constitutional: well developed and + morbidly obese; + not well nourished Eyes: + anicteric sclerae; normal pupil size Neck: trachea midline Respiratory: normal respiratory effort, lungs clear to auscultation Cardiovascular: RRR, no murmur, no edema Gastrointestinal (Abdomen): normal bowel sounds, soft, nontender, no hepatos plenomegaly Musculoskeletal: no cyanosis or clubbing, extremities motor strength 5/5 Skin: Erythema and swelling surrounding central crusting open 5mm circular wound 2cm anterior to left pinna. Erythema extending around ear and extends to neck just below jaw line. Neurologic: moves all extremities, awake and + confused Psychiatric: A+Ox3, euthymic affect Lymphatic: + cervical lymphadenopathy (Anterior left) Principal Diagnosis Facial Cellulitis Discharge Exam Constitutional WD/WN, vitals as above + morbidly obese; no acute distress Eyes + anicteric sclerae and PERRL ENMT Ears: no hearing impairment Nose: no external nose abnormality Neck normal visual inspection and trachea midline Respiratory normal respiratory effort, lungs clear to auscultation Auscultation: + diminished lung sounds Cardiovascular RRR, no murmur, no edema Gastrointestinal (Abdomen) normal bowel sounds, soft, nontender, no hepatosplenomegaly Musculoskeletal no cyanosis or clubbing, extremities motor strength 5/5 Skin 6x8cm indurated area to left preauricular area with purulent material expressed on palpation minimally tender dressing loosely attached -- packed by plastics prior to discharge cellulitis improved multiple other areas of folliculitis/acne to face/arms/chest/back Neurologic patellar DTR's 2+ bilat, sensation intact Psychiatric Orientation: alert and oriented x 3 Discharge Data Allergies Allergy/AdvReac Type Severity Reaction Status Date / Time methylprednisolone Allergy Unknown chest Verified 03/01/20 14:53 pain,blurred vision,depression lorazepam AdvReac Severe welts in Unverified 03/01/20 14:53 mouth ~ throat swells Consultations 03/01/20 16:15 ED Decision to Admit Stat 03/02/20 10:29 Consult Plastic Surgery Routine Ordered Studies 03/01/20 12:[address] soft tissue neck w con Stat Hospital Course (1) Facial cellulitis: * Started from a pimple. * No drainable abscess on CT * Unasyn and transitioned to Dapto for concerns of MRSA * Plastic consulted * S/P I&D and culture with staph (not MRSA) * Stable and discharged on extended course of keflex/bactrim given continued purulent material/extent * Blood cultures repeated prior to discharge as 1/2 with gram positive but possibly contaminant To follow up closely with PCP this week. Keep packing in for today and remove tomorrow. Clean with antibacterial soap and water (2) Gram-positive bacteremia: As above (3) Type 2 diabetes mellitus: HbA1C 7 Hold home meds glipizide and metformin while inpatient and resumed at discharge (4) Hypothyroidism: Continued levothyroxine 137 mcg p.o. every morning (5) HTN (hypertension): Continued lisinopril 10 mg p.o. every morning (6) GERD (gastroesophageal reflux disease): omeprazole for pantoprazole as per hospital formulary while inpatient (7) Hyperlipemia: Hold statin while taking daptomcyin --> resumed as discharged on keflex/bactrim as above (8) DVT prophylaxis: Low risk. Chemical or mechanical prophylaxis not warranted. To have close follow up with PCP this week Total Time Total Time Spent Total Time Spent (In Minutes): 60 Discharge Plan Discharge Items Patient Disposition: Home - Self-Care Reason For Visit: FACIAL CELLULITIS Discharge Diagnosis: Facial Cellulitis Goals: You have been hospitalized for an urgent problem which required surgery. During your stay at [facility], we have made an effort to correct the problem that brought you to the hospital while keeping you as comfortable as possible. Surgery and medications were used to bring your condition under control and your discharge instructions will include directions for any medications you should take after leaving the hospital. Please make sure to follow the advice of your surgeon regarding follow up with the surgeon and with your primary care provider. Activity: Resume your previous activity Non-emergency contact: Primary Care Provider and Surgeon Call non-emergency contact if: you have any medication questions, your symptoms worsen and your pain is unusual for you Follow-up/Referrals: Krystina Romano MD [Physician] - 04/03/20 1:45 pm (1 month ARRIVE 15 MINUTES PRIOR TO SCHEDULE TIME. PLEASE WEAR A MASK.) Demetrio Stock PA-C [Primary Care Provider] - 03/06/20 10:00 am (within ONE WEEK) Diet: Carb Consistent or DM2 and Heart Healthy Addtl Attending Provider Instructions: You have been hospitalized for a facial cellulitis with abscess. You were seen by plastic surgery who did an incision and drainage and cultures were sent. Blood cultures were positive for staph in 1/2 sets and repeat blood cultures are pending. Cultures from plastic surgery show staph as well. If positive, you may need further IV antibiotics and will be called. You are being sent with prescriptions for the following antibiotics: * Bactrim 1 tablet TWICE by mouth daily * Keflex 1 tablet by mouth FOUR times daily Please take all antibiotics as prescribed. You should have close follow up with primary care in the next week to monitor your progress. You can follow up with plastic surgery as needed for cosmetic repair if desired. Please return to the emergency department with any fever, chills, worsening redness/spreading, or for any other symptoms that are concerning for you. It has been a pleasure being a part of the medical team providing for you while you have been in the hospital. Take care! Pending Studies at Discharge: Yes Studies:: Wound Culture - preliminary with staph aureus- sensitivities pending Blood Culture Stand-Alone Forms: My [facility] Medications and DC Order Prescriptions: New sulfamethoxazole-trimethoprim [Bactrim DS] 800-160 mg tablet 1 tab PO BID 12 Days Qty: 24 RF: 0 cephalexin [Keflex] 500 mg capsule 500 mg PO QID 7 Days Qty: 28 RF: 0 Continued levothyroxine 137 mcg tablet 137 mcg PO QAM RF: 0 ibuprofen 800 mg tablet 800 mg PO TIDM RF: 0 glipizide 10 mg tablet extended release 24hr 10 mg PO BID RF: 0 omeprazole 40 mg capsule,delayed release(DR/EC) 40 mg PO QAM RF: 0 simvastatin 40 mg tablet 40 mg PO QAM RF: 0 metformin 1,000 mg tablet 1,000 mg PO BID RF: 0 lisinopril 10 mg tablet 10 mg PO QAM RF: 0 montelukast 10 mg tablet 10 mg PO QAM RF: 0 furosemide 20 mg tablet 20 mg PO QAM RF: 0 Discharge Orders: Discharge Order (Routine); Ordered 03/03/20 Ordered By: Angeline Hurd/Other Patient Handouts: High Blood Sugar (Hyperglycemia), Hypoglycemia (Low Blood Sugar), Managing Type 2 Diabetes, Managing Diabetes: The A1C Test, Diabetes: Meal Planning Admission Data Admit Date/Time: 03/01/20 16:36 Attending Provider: Reynaldo Ruffin Admit Provider: Alton Johnson Primary Care Provider: Demetrio Stock Other Providers: Alton Johnson ; Krystina Romano Coding Level of Care Code D/C Day Management >30 mins Diagnoses Facial cellulitis L03.211 Gram-positive bacteremia R78.81 Type 2 diabetes mellitus E11.9 Hypothyroidism E03.9 HTN (hypertension) I10 GERD (gastroesophageal reflux disease) K21.9 Hyperlipemia E78.5 DVT prophylaxis Z29.9
[2020-03-03] MEDS: DAPTOmycin 650 MG in SYRINGE 0 ML IV SCH (12:54)
--- NOTE | 2020-03-03 15:06 | Surgery Progress Note ---
Date of Service March 03, 2020 Assessment & Plan (1) Facial cellulitis: MRSA not detected with wound culture. Recommend that patient continue to keep wound clean with antibacterial soap and water. He was instructed to keep packing that was placed today in until tomorrow. Then, he can remove and shower. He is ok for discharge to home with follow-up with his PCP. Admission and Anticipated Discharge Date Admission Date: March 01, 2020 Supervising Physician Co-Signing Physician Notes I personally saw and examined this patient and agree with the assessment and plan. Still with some purulent drainage, cellulitis improved. Instructions reviewed. Follow up with PCP after discharge. Subjective Haris reports that he is doing well today. Reports that there was not much drainage from facial abscess overnight. He did attempt to use warm compresses overnight and this morning. He denies any pain. Reports that he is ready to go home. Physical Exam Constitutional: WD/WN, vitals as above Skin: no rashes, warm and dry + wound There is an area of induration left preauricular area measuring about 6 x 8 cm, centrally, there is some scant purulent drainage. It is tender to palpation. Additional purulent drainage appreciated on physical exam. Wound cleaned with hydrogen peroxide and packed with 4x4 gauze and silk tape applied. Psychiatric: A+Ox3, euthymic affect Results & Data ([facility]) Vital Signs (Past 12 Hours) Vital Signs Temp Pulse Resp BP Pulse Ox 03/03/20 07:38 36.6 C 91 H 18 142/88 H 98 PG Care Time/CCT Total # of Minutes Spent Total Time Spent with Patient: Total time spent is greater than 50% in coordination of care (as documented) at patient's floor/unit and/or counseling patient: Coding Level of Care Code 77312 Subseq Hosp Care Lvl 1 Diagnoses Facial cellulitis L03.211
== END 2020-03-03 17:21 | disposition home or self-care (01) ==
LOC: ED 11:59 → 3W 11:59 → SUATTDRO 16:36 → 3W 18:13

== ENCOUNTER 2024-11-06 12:33 | Inpatient (IN) ==
[2024-11-06 13:46] LABS: Hematocrit (blood only) 43.7 % (42.0-52.0); Hemoglobin 14.3 g/dl (14.0-18.0); Immature Granulocytes # (auto) 0.12 K/uL (0.01-0.20); Immature Granulocytes % (auto) 0.8 %; Mean Corpuscular Hemoglobin 25.7 pg (25.0-34.0); Mean Corpuscular Volume 78.6 fL (80.0-100.0); Platelet Count 231 K/uL (130-400); RDW Standard Deviation 38.5 fL (36.4-46.3); Red Blood Count 5.56 M/uL (4.70-6.10); White Blood Count 14.54 K/ul (4.8-10.8)
[2024-11-06 13:59] LABS: Alanine Aminotransferase 56.0 U/L (7-52); Albumin Globulin Ratio 1.1 (0.9-2); Alkaline Phosphatase 99.0 U/L (34-104); Anion Gap 11.0 (3-11); Bilirubin,Total 0.8 mg/dl (0.2-1.0); Blood Urea Nitrogen 14.0 mg/dl (6-23); Calcium 9.8 mg/dl (8.6-10.3); Carbon Dioxide 24.0 mmol/L (21-32); Chloride 99.0 mmol/L (98-107); Creatinine Clr Calc Pharmacy 128.3 ml/min; Globulin 4.0 gm/dl (2.5-4.0); Glucose 334.0 mg/dl (70-99(Fasting)); Potassium 3.9 mmol/L (3.5-5.1); Sodium 134.0 mmol/L (136-145); Total Protein 8.2 gm/dl (6.0-8.3)
[2024-11-06] MEDS ORDERED: VANCOMYCIN CONSULT ACTIVE PRN ×2 (14:04→17:52)
[2024-11-06] MEDS: OPTIRAY 320 100ml IV ONE (14:17)
--- NOTE | 2024-11-06 14:23 | Emergency Department Note ---
History of Present Illness General Chief complaint: Skin Problem Stated complaint: ABCESS ON FACE THAT NEEDS DRAINED Time Seen by Provider: 11/06/24 12:39 Source: patient Mode of arrival: ambulatory Limitations: no limitations History of Present Illness Maximum Pain Intensity: 5 Patient is a 49-year-old male with history of hypertension, hyperlipidemia, uncontrolled diabetes who presents for facial swelling and redness. He has had similar symptoms in the past when he developed an abscess and required IV antibiotics. Symptoms started on Tuesday and redness and swelling has significantly increased over the past 24 hours. He does report pain radiating from his ear down to his right jaw. Denies any fevers or chills at this time. No difficulty swallowing fluids or secretions. Home Medications Medication Instructions Recorded Confirmed Type furosemide 20 mg tablet 20 mg PO QAM 03/01/20 11/06/24 History glipizide 10 mg tablet, extended 10 mg PO BID 03/01/20 11/06/24 History release 24 hr levothyroxine 137 mcg tablet 137 mcg PO QAM 03/01/20 11/06/24 History metformin 1,000 mg tablet 1,000 mg PO BID 03/01/20 11/06/24 History montelukast 10 mg tablet 10 mg PO QAM 03/01/20 11/06/24 History omeprazole 40 mg capsule,delayed 40 mg PO QAM 03/01/20 11/06/24 History release simvastatin 40 mg tablet 40 mg PO QAM 03/01/20 11/06/24 History gabapentin 400 mg capsule 400 mg PO TID 10/07/23 11/06/24 History losartan 50 mg tablet 50 mg PO DAILY 10/07/23 11/06/24 History propranolol 40 mg tablet 40 mg PO DIRECTED 10/07/23 11/06/24 History sennosides 8.6 mg tablet (Senna 8.6 mg PO DAILY PRN Constipation 10/07/23 11/06/24 History Laxative) triamcinolone acetonide 0.1 % 1 applic topical DAILY PRN SKIN 10/07/23 11/06/24 History topical cream IRRITATIONS Allergies Allergy/AdvReac Type Severity Reaction Status Date / Time lorazepam Allergy Severe welts in Verified 11/06/24 15:05 mouth ~ throat swells methylprednisolone AdvReac Severe chest Verified 11/06/24 15:05 pain,blurred vision,depression Past Med/Surg History Problem List (Updated 11/06/24 @ 15:59 by Tomas Pino MD) Hyperglycemia (Acute) Facial cellulitis (Acute) Elevated LFTs Diarrhea Peptic reflux disease Obesity GERD without esophagitis Asthma Allergic rhinitis Epidermal cyst HTN (hypertension) (Chronic) Type 2 diabetes mellitus GERD (gastroesophageal reflux disease) Cellulitis of neck (Acute) Acute hyperglycemia (Acute) Facial cellulitis (Acute) Hypothyroidism Ureterolithiasis (Acute) Bronchitis (Chronic) Nausea vomiting and diarrhea (Acute) Vasovagal near syncope (Acute) Medical History (Updated 11/06/24 @ 15:59 by Tomas Pino MD) Vision loss, left eye Gout Hyperlipemia Social History Smoking Status: Never smoker Do You Dip or Chew Tobacco: No; Hx Alcohol Use: Yes (Quit drinking 20 years ago) Hx Substance Use: No Preferred Language: Dominican Communication Ability: Effective Tape Maker Required: No Beliefs That Will Affect Care: None Current Living Situation: Alone Feels Safe at Home: Yes Assistive Devices: None Review of Systems Review of systems negative outside of positive findings mentioned in HPI. Physical Exam Vital Signs Vital Signs - 24 hr 11/06/24 12:35 11/06/24 12:59 11/06/24 13:04 Temperature 36.0 C L Temperature Source Temporal Artery Scan Pulse Rate 119 H 110 H Pulse Rate [Apical] 112 H Respiratory Rate 18 18 Respiratory Effort / Characteristics Non-Labored Spontaneous Non-Labored Spontaneous Respiratory Depth Normal Normal Respiratory Pattern Regular Blood Pressure 189/118 H Blood Pressure [Left Arm] 177/101 H Blood Pressure Mean 141 Blood Pressure Mean [Left Arm] 126 Blood Pressure Position [Left Arm] Sitting Pulse Oximetry 96 95 Oxygen Delivery Method Room Air Room Air Sepsis Recent Fever Within 48 Hours No Sepsis New/Unexplained Change in Mental Status N/A Sepsis Action Taken by Nursing No Action Required 11/06/24 15:53 Temperature Temperature Source Pulse Rate Pulse Rate [Apical] 95 H Respiratory Rate 18 Respiratory Effort / Characteristics Non-Labored Spontaneous Respiratory Depth Normal Respiratory Pattern Blood Pressure Blood Pressure [Left Arm] 188/98 H Blood Pressure Mean Blood Pressure Mean [Left Arm] 128 Blood Pressure Position [Left Arm] Lying Pulse Oximetry 98 Oxygen Delivery Method Room Air Sepsis Recent Fever Within 48 Hours Sepsis New/Unexplained Change in Mental Status Sepsis Action Taken by Nursing See below Constitutional WD/WN, vitals as above Eyes PERRL, conjunctivae normal, anicteric sclerae ENMT Ears: no external ear abnormality and no TM abnormality Mouth: + dental caries; no oropharynx abnormality Throat: uvula midline; no posterior oropharynx abnormality, no tonsil abnormality and no uvular edema Induration extending from the right preauricular region down to the angle of the mandible with fluctuance noted at the TMJ, normal examination of external canal, TM WNL, fluctuance over the R TMJ Respiratory normal respiratory effort, lungs clear to auscultation Cardiovascular RRR, no murmur, no edema Course Administered Medications Vancomycin HCl 2,750 mg/ (Sodium Chloride) 555 mls @ 200 mls/hr IV NOW ONE Stop: 11/06/24 16:50 Last Admin: 11/06/24 15:34 Dose: 200 mls/hr Documented By: CC Insulin Glargine (Lantus Per Unit Charge) 12 units SQ BID RIO Stop: 12/06/24 15:14 Last Admin: 11/06/24 15:44 Dose: 12 units Documented By: CC Co-signed By: ML Discontinued Medications Ceftriaxone Sodium (Rocephin) 2,000 mg in 50 mls @ 100 mls/hr IV NOW STA Stop: 11/06/24 14:33 Last Infusion: 11/06/24 15:48 Dose: Infused Documented By: Admin: 11/06/24 14:49 Dose: 100 mls/hr Documented By: CC Sodium Chloride (Nss) 1,000 mls @ 999 mls/hr IV .Q1H1M RIO Stop: 11/06/24 15:06 Last Infusion: 11/06/24 15:48 Dose: Infused Documented By: Admin: 11/06/24 14:49 Dose: 999 mls/hr Documented By: CC Insulin Human Regular (Novolin-R Insulin Per Unit Charge) 5 units IV NOW STA Stop: 11/06/24 15:15 Last Admin: 11/06/24 15:44 Dose: 3 units Documented By: CC Co-signed By: ML Ioversol (Optiray 320 100ml) 94 ml IV ONCE ONE Stop: 11/06/24 14:18 Last Admin: 11/06/24 14:17 Dose: 94 ml Documented By: MICHA Medical Decision Making Differential Diagnosis Facial cellulitis, facial abscess, odontogenic infection, parotitis, sialolithiasis Medical Records Attestation: I reviewed the patient's medical records. Laboratory Data Attestation: I reviewed the patient's lab results. 11/06/24 12:53 11/06/24 12:53 Lab Results 11/06/24 11/06/24 11/06/24 Range/Units 12:53 13:08 15:36 WBC 14.54 H (4.8-10.8) K/ul RBC 5.56 (4.70-6.10) M/uL Hgb 14.3 (14.0-18.0) g/dl Hct 43.7 (42.0-52.0) % MCV 78.6 L (80.0-100.0) fL MCH 25.7 (25.0-34.0) pg MCHC 32.7 (32.0-36.0) g/dL RDW Std Deviation 38.5 (36.4-46.3) fL RDW Coeff of Lia 13.6 (11.5-14.5) % Plt Count 231 (130-400) K/uL MPV 10.6 (9.4-12.4) fL Immature Gran % (Auto) 0.8 % Neut % (Auto) 79.6 % Lymph % (Auto) 11.6 % Gordon % (Auto) 7.0 % Eos % (Auto) 0.7 % Baso % (Auto) 0.3 % Neut # (Auto) 11.56 H (1.40-6.50) K/uL Lymph # (Auto) 1.69 (1.20-3.40) K/uL Gordon # (Auto) 1.02 H (0.11-0.59) K/uL Eos # (Auto) 0.10 (0.00-0.50) K/uL Baso # (Auto) 0.05 (0.00-0.20) K/uL Immature Gran # (Auto) 0.12 (0.01-0.20) K/uL Sodium 134 L (136-145) mmol/L Potassium 3.9 (3.5-5.1) mmol/L Chloride 99 (98-107) mmol/L Carbon Dioxide 24 (21-32) mmol/L Anion Gap 11 (3-11) BUN 14 (6-23) mg/dl Creatinine 1.06 (0.6-1.4) mg/dl Est Cr Clr Drug Dosing 128.3 ml/min eGFR 87.11 BUN/Creatinine Ratio 13.2 (10-20) Glucose 334 H* (70-99(Fasting)) mg/dl POC Glucose 295 H (70-99) mg/dl Lactate 1.3 (0.4-2.0) mmol/L Calcium 9.8 (8.6-10.3) mg/dl Total Bilirubin 0.8 (0.2-1.0) mg/dl AST 30 (13-39) U/L ALT 56 H (7-52) U/L Alkaline Phosphatase 99 (34-104) U/L Total Protein 8.2 (6.0-8.3) gm/dl Albumin 4.2 (3.4-5.0) gm/dl Globulin 4.0 (2.5-4.0) gm/dl Albumin/Globulin Ratio 1.1 (0.9-2) Imaging Data Radiologist's Impression: Face CT 11/06/24 13:03 CT facial bones w con HISTORY: 49 years-old Male facial abscess acute facial pain and swelling COMPARISON: CT soft tissue neck 03/01/2020 TECHNIQUE: Multiple axial CT images of the facial bones were obtained with IV contrast. A dose lowering technique was used consistent with the principals of ALARA. FINDINGS: There is moderate subcutaneous edema within the right lateral cheek/temporal scalp and right neck with adjacent thickening of the platysma musculature and edema surrounding the right parotid gland. No discrete fluid collection to suggest abscess. There are numerous subcentimeter right cervical chain and lateral facial lymph nodes which are likely reactive. Cervical chain lymph nodes measure up to 1.4 x 1.1 cm. Patent airway. Mild degenerative changes of the cervical spine. Patient is edentulous. Mastoid air cells are clear. Mild mucosal thickening of the ethmoid air cells on the left. The imaged intracranial structures appear unremarkable. A benign-appearing sclerotic focus in the right mandible measures 8 mm on image 150. IMPRESSION: 1. Findings suggestive of right lateral facial cellulitis with possible parotid sialoadenitis. 2. No fluid collection to suggest abscess. 3. Likely reactive lymphadenopathy. ACT 112: Negative or not required by law. The above report was generated using voice recognition software. It may contain grammatical, syntax or spelling errors. Electronically signed by: Bret Johnson M.D. 11/06/2024 2:37 PM MDM Narrative Send patient is a 49-year-old male with history of uncontrolled diabetes who presents with redness and swelling to the right side of his face. Afebrile nontoxic-appearing. He is protecting his airway without difficulty tolerating secretions or p.o. fluids at home. Erythema and induration is localized to the right angle of the mandible and preauricular area. Lab work notable for a leukocytosis without evidence of sepsis. IV antibiotics were ordered while awaiting CT imaging. CT shows evidence of isolated cellulitis to the soft tissue of the right side of the face without discrete fluid collection concerning for abscess. Patient will be admitted for IV antibiotics and management of uncontrolled diabetes. Blood glucose level of 334 here today. No evidence of DKA. Stable for admission to hospitalist bed. Impression & Plan Facial cellulitis, Hyperglycemia Discharge Plan Visit Data Chief Complaint: Skin Problem Stated Complaint: ABCESS ON FACE THAT NEEDS DRAINED ED Provider: Tomas Pino Discharge Problem: Facial cellulitis, Hyperglycemia Patient Disposition: Admitted As Inpatient Condition: Good Forms Stand Alone Forms: My [facility] Want[facility] Prescriptions Prescriptions: No Action propranolol 40 mg tablet 40 mg PO DIRECTED Rx Instructions: PT UNSURE IF STILL TAKING, "MAYBE PRN ??" sennosides [Senna Laxative] 8.6 mg tablet 8.6 mg PO DAILY PRN (Reason: Constipation) losartan 50 mg tablet 50 mg PO DAILY Rx Instructions: PER PT "NOT TAKING, B/P FINE WHEN IN DOCTOR OFFICE, TOLD TO STOP". triamcinolone acetonide 0.1 % cream 1 applic topical DAILY PRN (Reason: SKIN IRRITATIONS) gabapentin 400 mg capsule 400 mg PO TID levothyroxine 137 mcg tablet 137 mcg PO QAM glipizide 10 mg tablet extended release 24hr 10 mg PO BID omeprazole 40 mg capsule,delayed release(DR/EC) 40 mg PO QAM simvastatin 40 mg tablet 40 mg PO QAM metformin 1,000 mg tablet 1,000 mg PO BID montelukast 10 mg tablet 10 mg PO QAM furosemide 20 mg tablet 20 mg PO QAM Rx Instructions: PER PT "NOT TAKING, MADE ME PEE TOO MUCH". Referrals Referrals: Demetrio Stock PA-C [Primary Care Provider] -
--- NOTE | 2024-11-06 14:38 | CT Scan Report ---
CT facial bones w con HISTORY: 49 years-old Male facial abscess acute facial pain and swelling COMPARISON: CT soft tissue neck 03/01/2020 TECHNIQUE: Multiple axial CT images of the facial bones were obtained with IV contrast. A dose loweri ng technique was used consistent with the principals of EUGENE. FINDINGS: There is moderate subcutaneous edema within the right lateral cheek/temporal scalp and right neck wit h adjacent thickening of the platysma musculature and edema surrounding the right parotid gland. No d iscrete fluid collection to suggest abscess. There are numerous subcentimeter right cervical chain an d lateral facial lymph nodes which are likely reactive. Cervical chain lymph nodes measure up to 1.4 x 1.1 cm. Patent airway. Mild degenerative changes of the cervical spine. Patient is edentulous. Mastoid air cells are clear. Mild mucosal thickening of the ethmoid air cells on the left. The imaged intracranial structures appe ar unremarkable. A benign-appearing sclerotic focus in the right mandible measures 8 mm on image 150. IMPRESSION: 1. Findings suggestive of right lateral facial cellulitis with possible parotid sialoadenitis. 2. No fluid collection to suggest abscess. 3. Likely reactive lymphadenopathy. ACT 112: Negative or not required by law. The above report was generated using voice recognition software. It may contain grammatical, syntax o r spelling errors. Electronically signed by: Bret Johnson M.D. 11/06/2024 2:37 PM
[2024-11-06] MEDS: cefTRIAXone SODIUM 2,000 MG/50 ML BAG IV STA (14:49)
[2024-11-06] MEDS: SODIUM CHLORIDE 0.9% 1,000 ML IV SCH (14:49)
[2024-11-06] MEDS ORDERED: CARBOHYDRATES FOR HYPOGLYCEMIA PO PRN (15:14)
[2024-11-06] MEDS ORDERED: GLUCOSE 40% GEL 15 GM TUBE PO PRN (15:14)
[2024-11-06] MEDS ORDERED: GLUCOSE 10 TAB/TUBE PO PRN (15:14)
[2024-11-06] MEDS ORDERED: DEXTROSE 50% 50 ML SYRINGE IV PRN (15:14)
[2024-11-06] MEDS ORDERED: GLUCAGON FOR INJ 1 MG VIAL SQ PRN (15:14)
--- NOTE | 2024-11-06 15:26 | History & Physical Report ---
Date of Service November 06, 2024 Assessment & Plan (1) Facial cellulitis: Plan: 49yo M w a history of poorly controlled DM2 who presents for treatment of R facial cellulitis without abscess Facial cellulitis, possible bacterial sialoadenitis has history of facial MSSA, in the setting of uncontrolled DM2 Past facial cellulitis 2020 with I&D, culture positive for MSSA. Patient started on Rocephin/vancomycin on ER Continued on Unasyn/vancomycin on admission. If clinically progressing transition to Augmentin +/- adjunct MRSA coverage. No prior history of MRSA so if progressing and reasonably stable could trial MSSA coverage with close observation. Anticipate 7 day course to be complete 11/13/24 unless extension is required. CRP added and trended No evidence of airway obstruction/compromise No evidence of abscess requiring ENT consult on admission T2DM, poorly controlled - BSG 335 on admit. Received 1 L of fluids. 3 units IV insulin ordered. Will recheck BSG and then if <300 transition to SQ as below - A1c pending. Last 2023 was 9.1% Basal bolus weight-based while admitted Lantus 12 units twice daily CF 30/CR 15 Goal BSG [id number] Home metformin/glipizide held Has chronic vision loss in the right eye unchanged in the last few years. Is due for a diabetic eye exam. Will have this as an outpatient Hyperlipidemia Continue statin Hypertension - BP 182/98 at bedside. Missed AM meds. 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 TTE ordered Creatinine at baseline, 1.06 on admit Lasix held for clinical volume contraction admission. Ambulate, SCDs Hypothyroidism Continue Synthroid Nonalcoholic fatty liver disease Suspected due to hyperlipidemia/DM2 Last ultrasound 2017 Normal ALT elevation of 56, stable/slightly lower than prior DVT prophylaxis: Lovenox Diet: Type II DM CODE STATUS: Full code Disposition: MSO (2) GERD (gastroesophageal reflux disease): (3) Type 2 diabetes mellitus: (4) HTN (hypertension): History of Present Illness Primary Care Provider: Demetrio Stock Haris Scanlon is a 49-year-old male with a past medical history of GERD, asthma, hypertension, type 2 diabetes, hypothyroidism, vasovagal presyncope, transaminitis followed by GI suspected due to LUPE presented to the ER for concern over a right jaw abscess worsening over the last 3 days. On presentation to the ER he is tachycardic and mildly hypertensive. He has a leukocytosis and elevated glucose at 334. Facial CT shows right lateral facial cellulitis with possible parotid sialoadenitis. No fluid collection suggestive of abscess. Suspected reactive lymphadenopathy "Gib" reports "I have this thing on the side of my face getting bigger and bigger since Tuesday". Has had before requiring I&D in the past and sometimes abx, usually gets better as outpatient. 2 months ago was on abx for similar. Could not get in to see his PCP this week, and came to the ER. No fevers or chills No pain when chewing. No pain in the teeth. Pain/swelling at the outsie of his R face. No wheezing. No difficulty breathing. No cough. No difficulty swallowing or clearing/managing spit/secretions No known history of MRSA or resistant infections DM2. "No idea how its doing, don't have a machine to check it. Go by just by how I'm feeling and take my pills everyday". Did not take medications last night. No polyuria. No dysuria. No excess thirst. No neuropathy or nephropathy. Reports he used to take lasix, but no longer takes this. Denies history of AL/CHF. Meds Reviewed at bedside: Metformin Glipizide Gabapentin Synthroid Propranolol as needed for anxiety Monteleukoast Statin Losartan Medical History: Reviewed Medications: Reviewed Surgical History: Reviewed Family history: Reviewed Allergies: Reviewed Social History: No tobacco product use. No ETOH use. No recreational drug use. Code Status: Full Code Allergies Allergy/AdvReac Type Severity Reaction Status Date / Time lorazepam Allergy Severe welts in Verified 11/06/24 15:05 mouth ~ throat swells methylprednisolone AdvReac Severe chest Verified 11/06/24 15:05 pain,blurred vision,depression Home Medications Medication Instructions Recorded Confirmed Type furosemide 20 mg tablet 20 mg PO QAM 03/01/20 11/06/24 History glipizide 10 mg tablet, extended 10 mg PO BID 03/01/20 11/06/24 History release 24 hr levothyroxine 137 mcg tablet 137 mcg PO QAM 03/01/20 11/06/24 History metformin 1,000 mg tablet 1,000 mg PO BID 03/01/20 11/06/24 History montelukast 10 mg tablet 10 mg PO QAM 03/01/20 11/06/24 History omeprazole 40 mg capsule,delayed 40 mg PO QAM 03/01/20 11/06/24 History release simvastatin 40 mg tablet 40 mg PO QAM 03/01/20 11/06/24 History gabapentin 400 mg capsule 400 mg PO TID 10/07/23 11/06/24 History losartan 50 mg tablet 50 mg PO DAILY 10/07/23 11/06/24 History propranolol 40 mg tablet 40 mg PO DIRECTED 10/07/23 11/06/24 History sennosides 8.6 mg tablet (Senna 8.6 mg PO DAILY PRN Constipation 10/07/23 11/06/24 History Laxative) triamcinolone acetonide 0.1 % 1 applic topical DAILY PRN SKIN 10/07/23 11/06/24 History topical cream IRRITATIONS Past Med/Surg History Problem List (Updated 10/17/23 @ 11:04 by Eddy Johnson PA-C) Elevated LFTs Diarrhea Peptic reflux disease Obesity GERD without esophagitis Asthma Allergic rhinitis Epidermal cyst HTN (hypertension) (Chronic) Type 2 diabetes mellitus GERD (gastroesophageal reflux disease) Cellulitis of neck (Acute) Acute hyperglycemia (Acute) Facial cellulitis (Acute) Hypothyroidism Ureterolithiasis (Acute) Bronchitis (Chronic) Nausea vomiting and diarrhea (Acute) Vasovagal near syncope (Acute) Medical History (Updated 10/17/23 @ 11:04 by Eddy Johnson PA-C) Vision loss, left eye Gout Hyperlipemia Social History Smoking Status: Never smoker Do You Dip or Chew Tobacco: No; Hx Alcohol Use: Yes (Quit drinking 20 years ago) Hx Substance Use: No Preferred Language: Estonian Communication Ability: Effective Performance Analyst Required: No Beliefs That Will Affect Care: None Current Living Situation: Alone Feels Safe at Home: Yes Assistive Devices: None Physical Exam Physical Exam: General: A&Ox3. NAD. Cooperative. HEENT: Hearing grossly intact. Pupils equal and reactive to light, qualitative decreased visual acuity out of the right eye; this is chronic per patient and unchanged. Erythema/warmth/tenderness/swelling overlying right orbital and mandible. No fluctuance. No dental pain on the right, oropharynx exam is without evidence of discharge/exudate/dental drainage. Uvula is midline. No stridor. Clearing secretions without difficulty Pulm: CTAB A&P. -wheezes, -rales, -rhonchi. Symmetrical chest rise. No increased work of breathing. No respiratory distress. Cardiac: Regular, tachycardic. No murmurs rubs or gallops. Radial pulses intact and symmetrical. Abdominal: Nontender, nondistended, soft. BS present. Extremities: Warm, dry. Moves all extremities equally Results & Data Results & Data Vital Signs (Past 12 Hours) Vital Signs Temp Pulse Pulse Resp BP BP Pulse Ox 11/06/24 13:04 110 H 11/06/24 12:59 112 H 18 177/101 H 95 11/06/24 12:35 36.0 C L 119 H 18 189/118 H 96 O2 Del Method 11/06/24 13:04 11/06/24 12:59 Room Air 11/06/24 12:35 Room Air PG Care Time/CCT Total # of Minutes Spent Total Time Spent with Patient: Total time spent is greater than 50% in coordination of care (as documented) at patient's floor/unit and/or counseling patient: Coding Level of Care Code 62399 INT INP/OBS CARE 3/75MIN Diagnoses Facial cellulitis L03.211 GERD (gastroesophageal reflux disease) K21.9 Type 2 diabetes mellitus E11.9 HTN (hypertension) I10
[2024-11-06] MEDS: VANCOMYCIN HCL 2,750 MG in SODIUM CHLORIDE 0.9% 500 ML IV ONE (15:34)
[2024-11-06] MEDS: NovoLIN-R INSULIN PER UNIT CHARGE IV STA (15:44)
[2024-11-06] MEDS: LANTUS PER UNIT CHARGE SQ SCH (15:44)
[2024-11-06] MEDS: LOSARTAN POTASSIUM 50 MG TAB PO STA (16:33)
[2024-11-06] MEDS: ENOXAPARIN INJ 40 MG/0.4 ML SYR SQ SCH (18:35)
[2024-11-06] MEDS: ACETAMINOPHEN 325 MG TAB PO PRN (19:35)
[2024-11-06] MEDS: AMPICILLIN/SULBACTAM SOD 3,000 MG/100 ML BAG IV SCH (19:44)
[2024-11-06] MEDS: INSULIN ASPART PER UNIT CHARGE SC SCH (19:50)
[2024-11-06] MEDS: SODIUM CHLORIDE 0.9% 500 ML IV ONE (21:28)
[2024-11-06] MEDS: GABAPENTIN 400 MG CAP PO SCH (21:36)
[2024-11-07] MEDS ORDERED: VANCOMYCIN HCL 2,000 MG in SODIUM CHLORIDE 0.9% 500 ML IV SCH (01:00)
[2024-11-07] MEDS: IBUPROFEN 600 MG TAB PO STA (01:49)
[2024-11-07] MEDS: VANCOMYCIN HCL 1,250 MG in SODIUM CHLORIDE 0.9% 250 ML IV SCH (01:50)
[2024-11-07 05:23] LABS: Hematocrit (blood only) 39.9 % (42.0-52.0); Hemoglobin 12.7 g/dl (14.0-18.0); Immature Granulocytes # (auto) 0.07 K/uL (0.01-0.20); Immature Granulocytes % (auto) 0.5 %; Mean Corpuscular Hemoglobin 25.2 pg (25.0-34.0); Mean Corpuscular Volume 79.2 fL (80.0-100.0); Platelet Count 204 K/uL (130-400); RDW Standard Deviation 41.0 fL (36.4-46.3); Red Blood Count 5.04 M/uL (4.70-6.10); White Blood Count 13.28 K/ul (4.8-10.8)
[2024-11-07] MEDS: LEVOTHYROXINE SODIUM 137 MCG TABLET PO SCH (05:40)
[2024-11-07 05:49] LABS: Anion Gap 8.0 (3-11); Blood Urea Nitrogen 10.0 mg/dl (6-23); Calcium 8.6 mg/dl (8.6-10.3); Carbon Dioxide 25.0 mmol/L (21-32); Chloride 100.0 mmol/L (98-107); Creatinine Clr Calc Pharmacy 124.8 ml/min; Glucose 379.0 mg/dl (70-99(Fasting)); Potassium 3.6 mmol/L (3.5-5.1); Sodium 133.0 mmol/L (136-145)
[2024-11-07 07:28] LABS: Hemoglobin A1C 10.0 % (4.5-5.6)
[2024-11-07] MEDS: LOSARTAN POTASSIUM 50 MG TAB PO SCH (08:16)
[2024-11-07] MEDS: MONTELUKAST SODIUM 10 MG TABLET PO SCH (08:16)
[2024-11-07] MEDS: PROPRANOLOL HCL 20 MG TAB PO PRN (08:17)
[2024-11-07] MEDS: SIMVASTATIN 40 MG TAB PO SCH (08:17)
--- NOTE | 2024-11-07 10:04 | Hospitalist Progress Note ---
Date of Service November 07, 2024 Assessment & Plan (1) Erysipelas of face: (2) Type 2 diabetes mellitus with hyperglycemia, with long-term current use of insulin: Plan In summary this is a 49-year-old male who presents with right facial erysipelas with remarkable medical history of recurrent folliculitis with previously isolated MSSA; further management as detailed below #[place] facial erysipelas Presented with right-sided facial pain that progressed over 48 hours; Suspect the source to be from recurrent episodes of MSSA folliculitis, given the frequency of recurrence over the past several years as the patient described; There is an area of sclerosis noted on the patient's CT head without contrast at the time of admission however given the elevated CRP, the risk of possible staphylococcal species, and MRI with and without contrast of the face is pending to rule out osteomyelitis -Continue Unasyn and vancomycin, Antibiotic treatment began on 11/06; unfortunately blood cultures were not obtained prior to initiation of antibiotics though there is no evidence of a systemic bloodstream infection at this time #Type 2 diabetes mellitus with hyperglycemia, long-term current use of insulin; nonadherent to prescribed medication regimen Hemoglobin A1c 10.0% on admission; does not assess his blood sugars in the outpatient setting as he does not have equipment to do so; goal blood glucose in the range of 140-180 for all random checks and postprandial checks Pharmacy assisting with sliding scale dosage Diabetes education consulted Admission and Anticipated Discharge Date Admission Date: November 06, 2024; anticipate discharge within 24 to 48 hours Subjective Mr. Scanlon is a 49-year-old male whose active medical conditions include type 2 diabetes mellitus with hyperglycemia with nonadherence to their long-term insulin prescription among other chronic medical conditions with medical history remarkable for recurrent facial abscesses/folliculitis with prior isolation of MSSA who presented to [facility] on 11/06 due to progressive right sided facial swelling and discomfort with associated subjective fevers and chills. No acute overnight events; the patient this morning feels improved with regard to their facial swelling both with diminished volume of edema as well as associated discomfort. Review of Systems Review of Systems: Constitutional: denies fevers, chills, malaise, fatigue Cardiovascular: denies angina, palpitations Pulmonary: denies cough Gastrointestinal: denies nausea, emesis, dysphagia, odynophagia, abdominal distension, constipation, diarrhea Genitourinary: denies dysuria Neurologic: denies focal weakness, paresthesias or numbness Musculoskeletal: denies arthralgias, progressive weaknesss, recent falls Integumentary: denies new or developing rashes or lesions Physical Exam Physical Exam: General: Adult male in no acute distress Vital Signs: Reviewed; persistently uncontrolled hypertension though patient did not take any of their home medications on 11/06 HEENT: Pupils equally reactive to light, extraocular motions intact without discomfort; moist mucous membranes, edentulous; no appreciable or expressible discharge from the right parotid duct; there is an area extending from the right temporal region caudal to the inferior border of the right mandible extending anteriorly to encompass the entirety of the right cheek but not extending into the periorbital space that is tender to palpation, nonfluctuant, not indurated, without a well-defined punctum or vesicle; this does not extend across midline nor does it involve the right periauricular region; there is palpable right and left posterior auricular lymphadenopathy Neck: [No palpable lymphadenopathy] Cardiovascular: Right greater than left anterior and posterior chain lymphadenopathy regular rate and rhythm with no murmurs, rubs, or gallops; S1 and S2 normal; bilateral radial and posterior tibial pulses 2+; no notable lower extremity edema Gastrointestinal: Soft, nondistended Neurologic: CN II-XII grossly intact; no discernible focal weakness nor paresthesias Results & Data Results & Data Vital Signs (Past 12 Hours) Vital Signs Temp Pulse Resp BP BP Pulse Ox O2 Del Method 11/07/24 07:36 36.9 C 94 H 18 180/100 H 96 Room Air 11/07/24 03:17 37.2 C 105 H 14 176/94 H 95 Room Air 11/07/24 00:26 105 H 181/79 H 11/06/24 22:08 36.9 C 102 H 18 195/85 H 98 Room Air Laboratory Results Laboratory Results WBC 13.28 K/ul (4.8-10.8) H 11/07/24 04:25 RBC 5.04 M/uL (4.70-6.10) 11/07/24 04:25 Hgb 12.7 g/dl (14.0-18.0) L 11/07/24 04:25 Hct 39.9 % (42.0-52.0) L 11/07/24 04:25 MCV 79.2 fL (80.0-100.0) L 11/07/24 04:25 MCH 25.2 pg (25.0-34.0) 11/07/24 04:25 MCHC 31.8 g/dL (32.0-36.0) L 11/07/24 04:25 RDW Std Deviation 41.0 fL (36.4-46.3) 11/07/24 04:25 RDW Coeff of Lia 14.6 % (11.5-14.5) H 11/07/24 04:25 Plt Count 204 K/uL (130-400) 11/07/24 04:25 MPV 10.7 fL (9.4-12.4) 11/07/24 04:25 Immature Gran % (Auto) 0.5 % 11/07/24 04:25 Neut % (Auto) 74.3 % 11/07/24 04:25 Lymph % (Auto) 16.1 % 11/07/24 04:25 Cedar % (Auto) 8.1 % 11/07/24 04:25 Eos % (Auto) 0.7 % 11/07/24 04:25 Baso % (Auto) 0.3 % 11/07/24 04:25 Neut # (Auto) 9.87 K/uL (1.40-6.50) H 11/07/24 04:25 Lymph # (Auto) 2.14 K/uL (1.20-3.40) 11/07/24 04:25 Cedar # (Auto) 1.07 K/uL (0.11-0.59) H 11/07/24 04:25 Eos # (Auto) 0.09 K/uL (0.00-0.50) 11/07/24 04:25 Baso # (Auto) 0.04 K/uL (0.00-0.20) 11/07/24 04:25 Immature Gran # (Auto) 0.07 K/uL (0.01-0.20) 11/07/24 04:25 Sodium 133 mmol/L (136-145) L 11/07/24 04:25 Potassium 3.6 mmol/L (3.5-5.1) 11/07/24 04:25 Chloride 100 mmol/L (98-107) 11/07/24 04:25 Carbon Dioxide 25 mmol/L (21-32) 11/07/24 04:25 Anion Gap 8 (3-11) 11/07/24 04:25 BUN 10 mg/dl (6-23) 11/07/24 04:25 Creatinine 1.09 mg/dl (0.6-1.4) 11/07/24 04:25 Est Cr Clr Drug Dosing 124.8 ml/min 11/07/24 04:25 eGFR 84.24 11/07/24 04:25 BUN/Creatinine Ratio 9.2 (10-20) L 11/07/24 04:25 Glucose 379 mg/dl (70-99(Fasting)) H* 11/07/24 04:25 POC Glucose 320 mg/dl (70-99) H* 11/07/24 09:47 Estimat Average Glucose 240 mg/dl 11/07/24 04:25 Hemoglobin A1c 10.0 % (4.5-5.6) H 11/07/24 04:25 Lactate 1.3 mmol/L (0.4-2.0) 11/06/24 13:08 Calcium 8.6 mg/dl (8.6-10.3) 11/07/24 04:25 Total Bilirubin 0.8 mg/dl (0.2-1.0) 11/06/24 12:53 AST 30 U/L (13-39) 11/06/24 12:53 ALT 56 U/L (7-52) H 11/06/24 12:53 Alkaline Phosphatase 99 U/L (34-104) 11/06/24 12:53 Troponin I High Sens 19.5 pg/ml (0-20) 11/07/24 04:25 C-Reactive Protein 11.66 mg/dl (0-0.5) H 11/07/24 04:25 Total Protein 8.2 gm/dl (6.0-8.3) 11/06/24 12:53 Albumin 4.2 gm/dl (3.4-5.0) 11/06/24 12:53 Globulin 4.0 gm/dl (2.5-4.0) 11/06/24 12:53 Albumin/Globulin Ratio 1.1 (0.9-2) 11/06/24 12:[address] 11/06/24 13:03 CT facial bones w con HISTORY: 49 years-old Male facial abscess acute facial pain and swelling COMPARISON: CT soft tissue neck 03/01/2020 TECHNIQUE: Multiple axial CT images of the facial bones were obtained with IV contrast. A dose lowering technique was used consistent with the principals of EUGENE. FINDINGS: There is moderate subcutaneous edema within the right lateral cheek/temporal scalp and right neck with adjacent thickening of the platysma musculature and edema surrounding the right parotid gland. No discrete fluid collection to suggest abscess. There are numerous subcentimeter right cervical chain and lateral facial lymph nodes which are likely reactive. Cervical chain lymph nodes measure up to 1.4 x 1.1 cm. Patent airway. Mild degenerative changes of the cervical spine. Patient is edentulous. Mastoid air cells are clear. Mild mucosal thickening of the ethmoid air cells on the left. The imaged intracranial structures appear unremarkable. A benign-appearing sclerotic focus in the right mandible measures 8 mm on image 150. IMPRESSION: 1. Findings suggestive of right lateral facial cellulitis with possible parotid sialoadenitis. 2. No fluid collection to suggest abscess. 3. Likely reactive lymphadenopathy. ACT 112: Negative or not required by law. The above report was generated using voice recognition software. It may contain grammatical, syntax or spelling errors. Electronically signed by: Bret Johnson M.D. 11/06/2024 2:37 PM Medications Administered Home Medications Medication Instructions Recorded Confirmed Last Taken furosemide 20 mg tablet 20 mg PO QAM 03/01/20 11/06/24 02/29/20 glipizide 10 mg tablet, extended 10 mg PO BID 03/01/20 11/06/24 11/05/24 release 24 hr levothyroxine 137 mcg tablet 137 mcg PO QAM 03/01/20 11/06/24 11/05/24 metformin 1,000 mg tablet 1,000 mg PO BID 03/01/20 11/06/24 11/05/24 montelukast 10 mg tablet 10 mg PO QAM 03/01/20 11/06/24 11/05/24 omeprazole 40 mg capsule,delayed 40 mg PO QAM 03/01/20 11/06/24 11/05/24 release simvastatin 40 mg tablet 40 mg PO QAM 03/01/20 11/06/24 11/05/24 gabapentin 400 mg capsule 400 mg PO TID 10/07/23 11/06/24 11/05/24 losartan 50 mg tablet 50 mg PO DAILY 10/07/23 11/06/24 Unknown propranolol 40 mg tablet 40 mg PO DIRECTED 10/07/23 11/06/24 Unknown sennosides 8.6 mg tablet (Senna 8.6 mg PO DAILY PRN Constipation 10/07/23 11/06/24 Unknown Laxative) triamcinolone acetonide 0.1 % 1 applic topical DAILY PRN SKIN 10/07/23 11/06/24 Unknown topical cream IRRITATIONS Active Medications Generic Name Dose Route Start Last Admin Trade Name Freq PRN Reason Stop Dose Admin Acetaminophen 650 mg 11/06/24 17:52 11/07/24 08:15 Acetaminophen 325 Mg Tab PO 12/06/24 17:51 650 mg Q4H PRN Administration pain/fever Enoxaparin Sodium 40 mg 11/06/24 18:00 11/06/24 18:35 Enoxaparin Inj 40 Mg/0.4 Ml Syr SQ 12/06/24 17:59 40 mg Q24H RIO Administration Gabapentin 400 mg 11/06/24 21:00 11/07/24 08:16 Gabapentin 400 Mg Cap PO 12/06/24 20:59 400 mg TID RIO Administration Hydralazine HCl 2.5 mg 11/06/24 17:52 11/06/24 19:35 Hydralazine Hcl 20 Mg/Ml Vial IV 12/06/24 17:51 2.5 mg Q6H PRN Administration SBP >180 Ampicillin Sodium/Sulbactam Sodium 3,000 mg in 100 mls @ 200 mls/hr 11/06/24 18:30 11/07/24 06:32 Unasyn IV 11/13/24 18:29 Infused Q6H RIO Infusion Vancomycin HCl 1,250 mg/ 275 mls @ 200 mls/hr 11/07/24 02:00 11/07/24 10:30 Sodium Chloride IV 11/14/24 01:59 200 mls/hr Q8H RIO Administration Insulin Aspart 0 units 11/06/24 17:00 11/07/24 06:25 Insulin Aspart Per Unit Charge SC 12/06/24 16:59 5 units ACHS RIO Administration Insulin Glargine 12 units 11/06/24 15:15 11/07/24 08:36 Lantus Per Unit Charge SQ 12/06/24 15:14 12 units BID RIO Administration Levothyroxine Sodium 137 mcg 11/07/24 06:30 11/07/24 05:40 Levothyroxine Sodium 137 Mcg Tablet PO 12/07/24 06:29 137 mcg DAILYBB RIO Administration Losartan Potassium 50 mg 11/07/24 09:00 11/07/24 08:16 Losartan Potassium 50 Mg Tab PO 12/07/24 08:59 50 mg DAILY RIO Administration Montelukast Sodium 10 mg 11/07/24 09:00 11/07/24 08:16 Montelukast Sodium 10 Mg Tablet PO 12/07/24 08:59 10 mg QAM RIO Administration Pantoprazole Sodium 40 mg 11/07/24 09:00 11/07/24 08:17 Pantoprazole 40 Mg Tab PO 12/07/24 08:59 40 mg QAM RIO Administration Propranolol HCl 40 mg 11/06/24 15:35 11/07/24 08:17 Propranolol Hcl 20 Mg Tab PO 12/06/24 15:34 40 mg DAILY PRN Administration anxiety/palpitations Simvastatin 40 mg 11/07/24 09:00 11/07/24 08:17 Simvastatin 40 Mg Tab PO 12/07/24 08:59 40 mg QAM RIO Administration PG Care Time/CCT Total # of Minutes Spent Total Time Spent with Patient: Total time spent is greater than 50% in coordination of care (as documented) at patient's floor/unit and/or counseling patient: Coding Level of Care Code 21445 SUB INP/OBS CARE 2/35MIN Diagnoses Erysipelas of face A46 Type 2 diabetes mellitus with hyperglycemia, with long-term current use of insulin E11.65; Z79.4
[2024-11-07] MEDS: GADOBUTROL 65ML VIAL IV ONE (12:21)
--- NOTE | 2024-11-07 12:56 | Magnetic Resonance Report ---
MR face wo/w con CLINICAL HISTORY: Right facial erisypelas, elevated CRP; r/o osteo COMPARISON STUDY: CT scan yesterday FINDINGS: There is motion artifact. There is increased T2 signal intensity and enhancement at the sub cutaneous fatty soft tissues of the right face consistent with cellulitis. There are nearby mildly en larged lateral right facial and submandibular lymph nodes, likely reactive. No soft tissue abscess se en. No abnormal osseous signal seen to suggest osteomyelitis. IMPRESSION: No evidence of facial soft tissue abscess or osteomyelitis. ACT 112: Negative or not required by law. Electronically signed by: Benja Loco M.D. 11/07/2024 12:53 PM
[2024-11-07 14:29] VITALS: RESP 16
[2024-11-08 06:53] LABS: Hematocrit (blood only) 44.2 % (42.0-52.0); Hemoglobin 13.8 g/dl (14.0-18.0); Immature Granulocytes # (auto) 0.15 K/uL (0.01-0.20); Immature Granulocytes % (auto) 0.9 %; Mean Corpuscular Hemoglobin 25.2 pg (25.0-34.0); Mean Corpuscular Volume 80.8 fL (80.0-100.0); Platelet Count 239 K/uL (130-400); RDW Standard Deviation 41.9 fL (36.4-46.3); Red Blood Count 5.47 M/uL (4.70-6.10); White Blood Count 16.19 K/ul (4.8-10.8)
[2024-11-08 07:48] VITALS: TEMP 98.4; O2SAT 92
[2024-11-08] MEDS: AMOXICILLIN/CLAVULANATE 875 MG TAB PO SCH (08:28)
[2024-11-08 08:45] LABS: Anion Gap 10.0 (3-11); Blood Urea Nitrogen 11.0 mg/dl (6-23); Calcium 9.4 mg/dl (8.6-10.3); Carbon Dioxide 25.0 mmol/L (21-32); Chloride 101.0 mmol/L (98-107); Creatinine Clr Calc Pharmacy 129.5 ml/min; Glucose 311.0 mg/dl (70-99(Fasting)); Potassium 3.9 mmol/L (3.5-5.1); Sodium 136.0 mmol/L (136-145)
[2024-11-08] MEDS ORDERED: VANCOMYCIN LEVEL ONE (09:00)
[2024-11-08 11:38] VITALS: BP 189/105; PULSE 102
--- NOTE | 2024-11-08 11:56 | Discharge Summary ---
Discharge Summary Date of Service November 08, 2024 Principal Dx & Hospital Course #1 = Principal Diagnosis (1) Erysipelas of face: (2) Type 2 diabetes mellitus with hyperglycemia, with long-term current use of insulin: Plan In summary this is a 49-year-old male who presents with right facial erysipelas with remarkable medical history of recurrent folliculitis with previously isolated MSSA; further management as detailed below #Right facial erysipelas Presented with right-sided facial pain that progressed over 48 hours prior to arrival; suspect the source to be from recurrent episodes of MSSA folliculitis, given the frequency of recurrence over the past several years as the patient described; CRP was noted to be elevated and subsequent MRI did not reveal any evidence of osteomyelitis. Antibiotics were transitioned from IV to PO on the morning of discharge, and the patient's exam findings have steadily improved through their hospitalization. -Antibiotic treatment began on 11/06; unfortunately blood cultures were not o btained prior to initiation of antibiotics though there is no evidence of a systemic bloodstream infection at this time -Continue Augmentin 875/125 mg p.o. twice daily through 11/15 for a full 10 day course #Type 2 diabetes mellitus with hyperglycemia, long-term current use of insulin; nonadherent to prescribed medication regimen Hemoglobin A1c 10.0% on admission; does not assess his blood sugars in the outpatient setting as he does not have equipment to do so; diabetes education was consulted and provided thorough advising alongside primary provider, but the patient is not interested in insulin therapy at this time. They are understanding of the numerous risks of uncontrolled diabetes mellitus, including recurrent infections and poor wound healing. They were encouraged to be adherent with their prescribed outpatient diabetic regimen and discuss this further with their PCP. Admission HPI Per Admitting Provider Haris Scanlon is a 49-year-old male with a past medical history of GERD, asthma, hypertension, type 2 diabetes, hypothyroidism, vasovagal presyncope, transaminitis followed by GI suspected due to NAFALD presented to the ER for concern over a right jaw abscess worsening over the last 3 days. On presentation to the ER he is tachycardic and mildly hypertensive. He has a leukocytosis and elevated glucose at 334. Facial CT shows right lateral facial cellulitis with possible parotid sialoadenitis. No fluid collection suggestive of abscess. Suspected reactive lymphadenopathy "Gib" reports "I have this thing on the side of my face getting bigger and bigger since Tuesday". Has had before requiring I&D in the past and sometimes abx, usually gets better as outpatient. 2 months ago was on abx for similar. Could not get in to see his PCP this week, and came to the ER. No fevers or chills No pain when chewing. No pain in the teeth. Pain/swelling at the outsie of his R face. No wheezing. No difficulty breathing. No cough. No difficulty swallowing or clearing/managing spit/secretions No known history of MRSA or resistant infections DM2. "No idea how its doing, don't have a machine to check it. Go by just by how I'm feeling and take my pills everyday". Did not take medications last night. No polyuria. No dysuria. No excess thirst. No neuropathy or nephropathy. Reports he used to take lasix, but no longer takes this. Denies history of [place]/CHF. Meds Reviewed at bedside: Metformin Glipizide Gabapentin Synthroid Propranolol as needed for anxiety Monteleukoast Statin Losartan Medical History: Reviewed Medications: Reviewed Surgical History: Reviewed Family history: Reviewed Allergies: Reviewed Social History: No tobacco product use. No ETOH use. No recreational drug use. Code Status: Full Code Discharge Exam General: Adult male in no acute distress Vital Signs: Reviewed HEENT: Pupils equally reactive to light, extraocular motions intact without discomfort; moist mucous membranes, edentulous; no appreciable or expressible discharge from the right parotid duct; there is an area extending from the right temporal region caudal to the inferior border of the right mandible extending anteriorly to encompass the entirety of the right cheek but not extending into the periorbital space that is no longer tender to palpation, remains nonfluctuant, without induration or a well-defined punctum or vesicle; this does not extend across midline nor does it involve the right periauricular region; there is palpable but reduced right and left posterior auricular lymphadenopathy Cardiovascular: regular rate and rhythm with no murmurs, rubs, or gallops; S1 and S2 normal; bilateral radial and posterior tibial pulses 2+; no notable lower extremity edema Gastrointestinal: Soft, nondistended Neurologic: CN II-XII grossly intact; no discernible focal weakness nor paresthesias Discharge Plan Discharge Items Patient Disposition: Home - Self-Care Reason For Visit: R FACIAL CELLULITIS Discharge Diagnosis: Right facial erysipelas Condition on Discharge: Good Activity: Resume your previous activity Bathing: No limitations Sexual Activity: When tolerated Exercise/Sports: As tolerated Driving/Machine Use: No limitations Weightbearing: Full weightbearing Non-emergency contact: Primary Care Provider Call non-emergency contact if: you have any medication questions, your symptoms worsen, your pain is worsening, your wound has increased redness and your wound has increased drainage Follow-up/Referrals: Demetrio Stock PA-C [Primary Care Provider] - 11/20/24 2:30 pm (Hospital follow up scheduled November 20 at 2:30) Diet: Carb Consistent or DM2 Addtl Attending Provider Instructions: Your diabetes has significantly worsened since your last assessment in 2023, with your A1c now measuring 10%. Adherence to your prescribed medication regimen from your PCP as well as a consistent carbohydrate diet is imperative to prevent worsening health outcomes, including these recurrent infections and your ability to recover from them. Pending Studies at Discharge: No Stand-Alone Forms: My [facility], Work/School Release Medications and DC Order Prescriptions: New amoxicillin-pot clavulanate 875-125 mg tablet 1 tab PO BID 7 Days Qty: 14 0RF Continued sennosides [Senna Laxative] 8.6 mg tablet 8.6 mg PO DAILY PRN (Reason: Constipation) losartan 50 mg tablet 50 mg PO DAILY Rx Instructions: PER PT "NOT TAKING, B/P FINE WHEN IN DOCTOR OFFICE, TOLD TO STOP". gabapentin 400 mg capsule 400 mg PO TID levothyroxine 137 mcg tablet 137 mcg PO QAM glipizide 10 mg tablet extended release 24hr 10 mg PO BID omeprazole 40 mg capsule,delayed release(DR/EC) 40 mg PO QAM simvastatin 40 mg tablet 40 mg PO QAM metformin 1,000 mg tablet 1,000 mg PO BID montelukast 10 mg tablet 10 mg PO QAM furosemide 20 mg tablet 20 mg PO QAM Rx Instructions: PER PT "NOT TAKING, MADE ME PEE TOO MUCH". No Action propranolol 40 mg tablet 40 mg PO DIRECTED Rx Instructions: PT UNSURE IF STILL TAKING, "MAYBE PRN ??" triamcinolone acetonide 0.1 % cream 1 applic topical DAILY PRN (Reason: SKIN IRRITATIONS) Discharge Orders: Discharge Order (Routine); Ordered 11/08/24 Ordered By: Enrico Hurd/Other Patient Handouts: Cellulitis Dc, Diabetes and Heart Disease, Diabetes and High Blood Pressure, Diabetes and Illness, Diabetes Exercise Starting, Diabetes Carbs Fats Protein, Diabetes ID, Diabetes Support Admission Data Admit Date/Time: 11/06/24 15:51 Attending Provider: Enrico Fountain Admit Provider: Surjit Castaneda Primary Care Provider: Demetrio Stock Other Providers: Surjit Castaneda Other Interventions: Discharge Summary Assessment (RN) Last Done: 11/08/24 11:37 Hospital Stay Data Consultations 11/06/24 15:09 ED Decision to Admit Stat Diagnostic Imagining Performed 11/06/24 13:03 CT face [CT facial bones w con] Stat 11/07/24 10:22 MRI face [MR face wo/w con] Routine Pending Results Patient Have Any Pending Studies at Discharge: No Discharge Instructions Given to Patient (Per Discharging Provider) Your diabetes has significantly worsened since your last assessment in 2023, with your A1c now measuring 10%. Adherence to your prescribed medication regimen from your PCP as well as a consistent carbohydrate diet is imperative to prevent worsening health outcomes, including these recurrent infections and your ability to recover from them. Total Time Total Time Spent Total Time Spent (In Minutes): 50 Coding Level of Care Code 67490 INP/OBS DISCH >30 MIN History Detailed Exam Detailed Medical Decision Making Moderate Complexity Diagnoses Erysipelas of face A46 Type 2 diabetes mellitus with hyperglycemia, with long-term current use of insulin E11.65; Z79.4
--- NOTE | 2024-11-08 17:00 | XCELERA ---
[id number]
--- NOTE | 2024-11-09 14:29 | Electrocardiogram Report ---
Test Reason : Blood Pressure : */* mmHG Vent. Rate : 100 BPM Atrial Rate : 100 BPM P-R Int : 180 ms QRS Dur : 138 ms QT Int : 386 ms P-R-T Axes : 68 -69 88 degrees QTcB Int : 497 ms Normal sinus rhythm Right bundle branch block Left anterior fascicular block Bifascicular block Left ventricular hypertrophy with repolarization abnormality Cannot rule out Anterior infarct , age undetermined Abnormal ECG When compared with ECG of 16-Nov-2013 13:27, (RBBB and left anterior fascicular block) is now Present Minimal criteria for Anterior infarct are now Present Confirmed by Vamsi lAan ([id number]) on 11/09/2024 2:29:17 PM Referred By: REFERRED SELF Confirmed By: Vamsi Alan
== END 2024-11-08 12:09 | disposition home or self-care (01) | DRG 603 ==
LOC: ED 12:33 → SUATTDRO 15:51 → 3W 15:51